=== PATIENT | male | born 1935 | race Caucasian/White ===

== ENCOUNTER 2017-10-26 05:07 | Day surgery (SDC) | payer MEDICARE, MEDICAID ==
[2017-10-25 10:35] VITALS: BP 142/67
[2017-10-25 11:39] LABS: EOSINOPHIL % 0.4 % (0.0-5.0); HEMOGLOBIN 13.1 g/dL (13.9-16.3); LYMPHOCYTES # 1.3 10^3/uL (1.0-4.8); LYMPHOCYTES % 23.3 % (24.0-44.0); MEAN CELL HGB CONCENTRATION 34.7 g/dL (33-37); MEAN CORP VOLUME 83.4 fL (78-100); MEAN PLATELET VOLUME 10.9 fL (7.8-11.0); MONOCYTES # 0.4 10^3/uL (0.3-0.8); NEUTROPHIL # 3.8 10^3/uL (1.8-7.7); NEUTROPHILS % 69.3 % (41.0-85.0); RED CELL DISTRIBUTION WIDTH 15.1 % (11.5-14.5); WHITE BLOOD CELL 5.5 10^3/uL (4.5-11.0)
--- NOTE | 2017-10-25 11:56 | PCM.EKG ---
[facility] Test Date: 2017-10-25 Test Time: 10:53:45 Pat Name: RHEA BAKER Department: Room: Gender: M Tool Designer: AWLVAntelmo : 1935 Requested By: RHEA GRIFFITH Order Number: [id number] Reading MD: Measurements Intervals [place] Rate: 51 P: 41 [place]: 214 QRS: -31 QRSD: 86 T: -23 QT: 486 QTc: 447 Interpretive Statements Sinus bradycardia with 1st degree AV block Left axis deviation T wave abnormality, consider anterolateral ischemia Abnormal ECG Compared to ECG 07/28/2017 02:50:33 Left-axis deviation now present T-wave abnormality now present Possible ischemia now present Sinus rhythm no longer present Please click the below link to view image of tracing.
[2017-10-25 12:13] LABS: CARBON DIOXIDE 23.7 mmol/L (20.0-32)
[~2017-10-26] VITALS: Ht 177.8 cm; Wt 101.3 kg
[~2017-10-26 05:07] MED LIST: ALBU8.5H7 IH; AMLO10TA2 PO; ASPI1CPM PO; ASPI325T14 PO; ASPI81TA52 PO; BIMA2.5D OP; CITA20TA5 PO; DIPH1TAB PO; DOCU-123 PO; FLUT10.6 IH; FURO40TA4 PO; GABA300C10 PO; HYDR-3101 PO; INSU100C5 SQ; INSU100I19 SQ; INSU100V13 SQ; IPRA4AER IH; LEVO25TA4 PO; LEVO50TA6 PO; LINA5TAB PO; LIRA0.6P2 SQ; LISI-414 PO; LISI10TA2 PO; MAGN296S9 PO; MAGN400O49 PO; MECL25TA3 PO; METF10002 PO; METF500T4 PO; METO25TA4 PO; METO50TA2 PO; MOVIPREP POWDER PACKET PO STA; OMEP40CA6 PO; OXYB5TAB7 PO; PANT40TA5 PO; PIOG30TA27 PO; PIOG30TA3 PO; PREG75CA PO; PROM25TA10 PO; RANI150C PO; RANO500T2 PO; TIOT18CA IH; TRAM50TA PO
[2017-10-26] MEDS ORDERED: NS 1000ML 1,000 ML ONE (05:20)
[2017-10-26] MEDS ORDERED: NS 1000ML 1,000 ML IV ONE (06:00)
[2017-10-26] MEDS ORDERED: SUBLIMAZE ONE (07:02)
[2017-10-26] MEDS ORDERED: LIDOCAINE 2% VIAL ONE (07:02)
[2017-10-26] MEDS ORDERED: VERSED ONE (07:02)
[2017-10-26] MEDS ORDERED: DIPRIVAN IV ONE (07:03)
[2017-10-26 08:11] VITALS: BP 153/74
[2017-10-26 11:35] VITALS: BP 166/83
[2017-10-26 11:50] VITALS: BP 172/73
[2017-10-26 12:05] VITALS: BP 164/80
--- NOTE | 2017-10-26 12:16 | OPH ---
DATE OF SURGERY: PREOPERATIVE DIAGNOSES: History of weight loss, dysphagia, unexplained vomiting and need for screening. POSTOPERATIVE DIAGNOSES: 1. Gastritis. 2. Check path on polyp. SURGEON: Chaparro Beard DO FINISHING TECHNICIAN: OR staff. ANESTHESIA: Total intravenous anesthesia by Ashely Wade CRNA PROCEDURES PERFORMED: 1. Esophagogastroduodenoscopy with biopsy. 2. Long flexible colonoscopy to cecum with cold forceps polypectomy x 2 in the ascending colon and x 1 in the transverse colon. SPECIMENS: 1. Gastric mucosa. 2. Ascending colon polyp. 3. Transverse colon polyp. All to path. ESTIMATED BLOOD LOSS: 7 mL. COUNTS: At the completion of the case, counts were correct per OR staff. DESCRIPTION OF PROCEDURE: The patient is an 82-year-old male, known from previous evaluation. Prior to procedure, informed consent was obtained. At the time of procedure, he was taken to the operative suite and placed in supine position. After time-out was completed, he was placed in left lateral recumbent position. After adequate sedation, esophagogastroduodenoscope was advanced transorally with pneumoinsufflation distally in second portion of duodenum. Once the duodenum was adequately visualized, camera was slowly withdrawn to facilitate visualization of the duodenal bulb and the pylorus. Pylorus showed minimal gastritis and biopsies were obtained. The retroflexed maneuver was performed. The cardia showed a small hiatal hernia. Fundus was grossly normal. Camera was reduced, stomach was decompressed. Scope was slowly withdrawn. Distal, mid and proximal esophagus were grossly normal. Vocal cords were visualized. Camera was removed. Procedure was discontinued The patient remained ER. Timeout was previously completed. After adequate sedation, rectal exam was performed. There were noted to be a very firm and enlarged prostate. There was no other mass aside from soft internal hemorrhoids. Camera was subsequently advanced transanally with pneumoinsufflation proximally to the level of the transverse colon where a small polyp was identified. It was removed with cold forceps. The camera was further advanced proximally to the level of the cecum. Once cecum was visualized, camera was slowly withdrawn to facilitate visualization of the ascending colon. In the distal ascending colon, 2 discrete small polyps were identified and removed and sent in the same container to pathology. Camera was further withdrawn to the remainder of the ascending colon, hepatic flexure and the transverse colon to the level of the previous polypectomy. There was noted to be good hemostasis. Camera was further withdrawn to the remainder of the distal transverse colon, splenic flexure, descending colon, sigmoid and rectum. There was no overt masses, polyps, or AVMs aside the once previously described. There was some occult diverticular disease noted. At the level of 5 cm, camera was retroflexed and reinserted. Anal verge was visualized within normal limits. Camera reduced. Colon decompressed, colonoscope was removed. The patient tolerated this procedure well. There were no acute complications noted. Chaparro Beard DO DR: Chan JOB# [id number] CC: Robert Arias NP
== END 2017-10-26 12:30 | DRG 395 ==
LOC: SDC 05:07
PROVIDERS: ATTEND Surgery
DX: D12.2 Benign neoplasm of ascending colon (principal); D12.3 Benign neoplasm of transverse colon; K29.30 Chronic superficial gastritis without bleeding; E11.42 Type 2 diabetes mellitus with diabetic polyneuropathy; I11.0 Hypertensive heart disease with heart failure; I50.9 Heart failure, unspecified; E03.9 Hypothyroidism, unspecified; Z98.890 Other specified postprocedural states; Z79.899 Other long term (current) drug therapy; F15.90 Other stimulant use, unspecified, uncomplicated; Z88.2 Allergy status to sulfonamides; Z79.84 Long term (current) use of oral hypoglycemic drugs
CPT/HCPCS: 36415; 43239; 45380; 80053; 82948 ×2; 85025; 85610; 85730; 88305; 93005; J2001; J2250; J3010; J3490; J7030; G0121

== ENCOUNTER 2018-05-14 07:40 | Emergency (ER) | payer MEDICARE, MEDICAID ==
[~2018-05-14] VITALS: Ht 182.9 cm; Wt 99.8 kg
[~2018-05-14 07:40] MED LIST changes: -AMLO10TA2 PO; +AMLO10TA6 PO; -CITA20TA5 PO; +CITA20TA6 PO; -METF10002 PO; +METF10007 PO; +METF500T17 PO; -METF500T4 PO; -METO50TA2 PO; +METO50TA6 PO; -MOVIPREP POWDER PACKET PO STA; -PIOG30TA3 PO; +PIOG30TA67 PO
--- NOTE | 2018-05-14 07:59 | ER.PDOC ---
General Chief Complaint: Requesting Medical Care Stated Complaint: CHEST PAIN Time seen by MD: 07:42 Source: patient, EMS Exam Limitations: clinical condition History of Present Illness Initial Comments Pt started having chest pain, at 6:45, radiating to back and neck. He received three nitros and 324 of aspirin and pain is now reduced to about 3/10. Mild shortness of breath Timing/Duration: 1 hour Severity/Quality: severe, pressure, sharp Radiation: neck, back Activities at Onset: none Prior CP/Workup: No Prior Chest Pain Nitro Today/Relief: 0.4 mg x 3, Provided By EMS Aspirin Today: 81 mg x 4, Provided By EMS Associated Symptoms: back pain, shortness of breath Allergies: Coded Allergies: Sulfa (Sulfonamide Antibiotics) (Verified Allergy, Severe, Swelling, ) "THE ROOF OF MY MOUTH SWELLS UP ON ME AND I CAN'T EVEN OPEN MY MOUTH TO TALK" Home Meds Reported Medications Insulin Detemir (LEVEMIR) 100 Unit/1 Ml Vial, 8 UNIT SQ HS, VIAL 10/25/17 Tiotropium [place] (SPIRIVA) 18 Mcg Cap.w.dev, 1 CAP IH BID, #30 CAP 3 Refills 10/25/17 Metformin Hcl (METFORMIN HCL) 1,000 Mg Tablet, 1 TAB PO BID, #60 TAB 5 Refills 10/25/17 Furosemide (FUROSEMIDE) 40 Mg Tablet, 1 TAB PO DAILY, #30 TAB 5 Refills 10/25/17 Aspirin (ASPIR-LOW) 81 Mg Tablet.dr, 1 TAB PO DAILY, #30 TAB 3 Refills 10/25/17 Lisinopril (LISINOPRIL) 5 Mg Tablet, 1 TAB PO DAILY, #30 TAB 5 Refills 10/25/17 Levothyroxine Sodium (LEVOTHYROXINE SODIUM) 50 Mcg Tablet, 50 MCG PO DAILY24, TABLET 07/28/17 Fluticasone Propionate (FLOVENT HFA) 10.6 Gm Aer.w.adap, 2 PUFF IH BID, #1 INHALER 2 Refills 12/09/15 Pregabalin (LYRICA) 75 Mg Capsule, 1 CAP PO BID, #60 CAP 1 Refill 12/09/15 Ranolazine (RANEXA) 500 Mg Tab.er.12h, 1 TAB PO BID, #60 TAB 3 Refills 12/09/15 Citalopram Hydrobromide (CITALOPRAM HBR) 20 Mg Tablet, 1 TAB PO DAILY, #30 TAB 5 Refills 12/09/15 Pioglitazone Hcl (ACTOS) 30 Mg Tablet, 1 TAB PO DAILY, #30 TAB 5 Refills 12/09/15 Oxybutynin Chloride (OXYBUTYNIN CHLORIDE) 5 Mg Tablet, 1 TAB PO DAILY, #60 TAB 11 Refills 12/09/15 Omeprazole (OMEPRAZOLE) 40 Mg Capsule.dr, 1 CAP PO DAILY PRN for INDIGESTION, # 30 CAP 3 Refills 12/09/15 Metoprolol Tartrate 50MG (LOPRESSER 50MG) 50 Mg Tablet, 1 TAB PO BID, #60 TAB 5 Refills 12/09/15 Bimatoprost (LUMIGAN) 2.5 Ml Drops, 1 DROP OP HS, #7.5 MILLILITER 3 Refills 12/09/15 Amlodipine Besylate (AMLODIPINE BESYLATE) 10 Mg Tablet, 5 MG PO DAILY, #30 TAB 5 Refills 03/24/14 Aspirin/Dipyridamole (AGGRENOX 25 MG-200 MG CAPSULE) 1 Each Cpmp.12hr, 1 CAP PO DAILY, #60 CAP 5 Refills 03/24/14 Insulin Detemir (LEVEMIR) 100 Unit/1 Ml Insuln.pen, 12 UNIT SQ ACB 03/24/14 Past Medical History Surgical History: cardiac cath, cholecystectomy, tonsillectomy Social History Drug Use: none Constitutional: no symptoms reported EENTM: no symptoms reported Respiratory: see HPI Cardiovascular: see HPI Gastrointestinal: no symptoms reported Genitourinary: no symptoms reported Musculoskeletal: no symptoms reported Skin: no symptoms reported Psychiatric/Neurological: no symptoms reported Endocrine: no symptoms reported Hematologic/Lymphatic: no symptoms reported Physical Exam General Appearance: No Apparent Distress, WD/WN HEENT: PERRL/EOMI, Normal ENT Inspection, TMs Normal, Pharynx Normal Neck: Non-Tender, Full Range of Motion, Supple, Normal Inspection Respiratory: lungs clear, normal breath sounds, no respiratory distress, other (tender anterior chest wall on palpation) Cardiovascular: Normal Peripheral Pulses, No Gallop, No JVD, Bradycardia Gastrointestinal: Normal Bowel Sounds, No Organomegaly, No Pulsatile Mass, Non Tender, Soft Extremities: Normal Inspection, Pedal Edema (3/6) Neurologic/Psychiatric: roll slicing machine tender II-XII NML as Tested, No Motor/Sensory Deficits, Alert, Normal Mood/Affect, Oriented x 3 Skin: Normal Color, Warm/Dry Lymphatic: No Adenopathy Progress Progress Pain free, needs to follow with Cardio Departure Time of Disposition: 09:05 Disposition: 01 HOME, SELF-CARE Impression: Primary Impression: Chest pain Additional Impression: Chest wall pain Condition: Stable Referrals: VINEET MACK [employer] (PCP) PRIMARY CARE PROVIDER Duration or Time Spent with Pa: 25 Problem Qualifiers CECI ROLON MD May 14, 2018 07:59
[2018-05-14 08:00] VITALS: BP 135/53
--- NOTE | 2018-05-14 08:02 | NUR ---
ARRIVAL PATIENT ARRIVED VIA AMBULANCE FROM [facility] RECEIVED REPORT FROM [facility] PERSONEL PT REPORTS CHEST PAIN THAT RADIATES TO BACK AND NECK AT "10" PATIENT RECEIVED SL NITRO X3, 324 ASA, 5MG MORPHINE AND 4MG ZOFRAN PRIOR TO ARRIVAL PT REPORTS PAIN AT "4" UPON ARRIVAL 20G IV TO LEFT AC INITIATED BY EMS DR ROLON IN ROOM UPON ARRIVAL
--- NOTE | 2018-05-14 08:19 | PCM.EKG ---
[facility] Test Date: 2018-05-14 Test Time: 08:23:14 Pat Name: RHEA BAKER Department: Room: Gender: M [employer]p [place]: KEIRY : 1935 Requested By: REAL PETERSON Order Number: [id number] Reading MD: Real Peterson Measurements Intervals [place] Rate: 44 P: 31 OR: 264 QRS: -21 QRSD: 94 T: -10 QT: 500 QTc: 427 Interpretive Statements Marked sinus bradycardia with 1st degree AV block Nonspecific T wave abnormality Abnormal ECG Compared to ECG 10/25/2017 10:53:45 Left-axis deviation no longer present Possible ischemia no longer present T-wave abnormality still present Electronically Signed On 05-15-2018 22:53:32 CDT by Real Peterson Please click the below link to view image of tracing.
[2018-05-14 08:25] LABS: BASOPHIL % 0.2 % (0.0-0.2); EOSINOPHIL % 0.4 % (0.0-5.0); HEMOGLOBIN 12.2 g/dL (13.9-16.3); LYMPHOCYTES # 1.4 10^3/uL (1.0-4.8); LYMPHOCYTES % 24.8 % (24.0-44.0); MEAN CELL HGB 28.5 pg (26-34); MEAN CELL HGB CONCENTRATION 33.9 g/dL (33-37); MEAN CORP VOLUME 84.1 fL (78-100); MEAN PLATELET VOLUME 10.6 fL (7.8-11.0); MONOCYTES # 0.5 10^3/uL (0.3-0.8); MONOCYTES % 9.3 % (5.0-12.0); NEUTROPHIL # 3.7 10^3/uL (1.8-7.7); NEUTROPHILS % 65.1 % (41.0-85.0); RED CELL DISTRIBUTION WIDTH 14.9 % (11.5-14.5); WHITE BLOOD CELL 5.6 10^3/uL (4.5-11.0)
--- NOTE | 2018-05-14 08:35 | DIREP ---
PROCEDURE:CHEST 1 VIEW COMPARISON:[facility], CR, XRAY CHEST SINGLE VW, 07/28/2017, 02:46 AM. INDICATIONS:CP FINDINGS: LUNGS/PLEURA:No significant pulmonary parenchymal abnormalities. No effusions. VASCULATURE:Normal. Unremarkable pulmonary vasculature. CARDIAC:Heart size cannot be evaluated due to AP technique. There are prominent epicardial fat pad. MEDIASTINUM:Normal. No visible mass or adenopathy. BONES:Normal. No fracture or visible bony lesion. OTHER:Negative. CONCLUSION:No acute cardiopulmonary abnormalities. No change from previous study. Dictated by: Zafar Condon M.D. on 05/14/2018 at 08:32 AM
[2018-05-14 08:48] LABS: ALANINE AMINOTRANSFERASE(ML) 19 U/L (12-78); ALKALINE PHOSPHATASE 126 U/L (50-136); ASPARTATE AMINO TRANSFERASE 23 U/L (0-35); CALCIUM 9.2 mg/dL (8.4-10.5); CARBON DIOXIDE 26.9 mmol/L (20.0-32); GLUCOSE 157 mg/dL (70-110)
[2018-05-14 09:00] VITALS: BP 146/54
[2018-05-14 09:25] VITALS: BP 144/53
--- NOTE | 2018-05-14 09:40 | NUR ---
IV THIS NURSE REMOVED PT IV THAT WAS PLACED BY EMS. CATHETER TIP IN TACT. WRAPPED IV WITH COTTON BALL AND COBAN. PT WAS INSTRUCTED TO LEAVE IN PLACE UNTIL RETURN TO [facility]. PT DEMONSTRATED UNDERSTANDING.
[2018-05-14 09:44] VITALS: BP 135/53
== END 2018-05-14 09:43 | disposition home or self-care (01) ==
LOC: EDBD 07:40 → EDUNIT# 07:40 → ER 07:40
DX: R07.89 Other chest pain (principal); R06.02 Shortness of breath; M54.9 Dorsalgia, unspecified; Z95.818 Presence of other cardiac implants and grafts; Z90.49 Acquired absence of other specified parts of digestive tract; Z90.89 Acquired absence of other organs; Z79.4 Long term (current) use of insulin; Z79.82 Long term (current) use of aspirin; Z79.899 Other long term (current) drug therapy; Z88.2 Allergy status to sulfonamides
CPT/HCPCS: 36415; 71045; 80053; 82550; 82553; 83880; 84484; 85025; 85379; 85610; 85730; 93005; 99285

== ENCOUNTER 2018-10-05 03:49 | Emergency (ER) | payer MEDICARE, MEDICAID ==
[~2018-10-05] VITALS: Ht 182.9 cm; Wt 99.8 kg
[~2018-10-05 03:49] MED LIST changes: -AMLO10TA6 PO; +AMLO10TA8 PO
--- NOTE | 2018-10-05 03:54 | ER.PDOC ---
General Chief Complaint: Requesting Medical Care Stated Complaint: FALL Time seen by MD: 03:45 Source: patient Exam Limitations: no limitations History of Present Illness Initial Comments Pt fell at [facility], injured right shoulder, head, pain also on left hip Occurred: just prior to arrival Where: [facility] Severity: moderate Injuries/Pain Location: head, upper extremity, lower extremity Context: Lost Balance Loss of Consciousness: No Loss of Consciousness Allergies: Coded Allergies: Sulfa (Sulfonamide Antibiotics) (Verified Allergy, Severe, Swelling, ) "THE ROOF OF MY MOUTH SWELLS UP ON ME AND I CAN'T EVEN OPEN MY MOUTH TO TALK" MEDS Reported Medications Insulin Detemir (LEVEMIR) 100 Unit/1 Ml Vial, 8 UNIT SQ HS, VIAL 10/25/17 Tiotropium [place] (SPIRIVA) 18 Mcg Cap.w.dev, 1 CAP IH BID, #30 CAP 3 Refills 10/25/17 Metformin Hcl (METFORMIN HCL) 1,000 Mg Tablet, 1 TAB PO BID, #60 TAB 5 Refills 10/25/17 Furosemide (FUROSEMIDE) 40 Mg Tablet, 1 TAB PO DAILY, #30 TAB 5 Refills 10/25/17 Aspirin (ASPIR-LOW) 81 Mg Tablet.dr, 1 TAB PO DAILY, #30 TAB 3 Refills 10/25/17 Lisinopril (LISINOPRIL) 5 Mg Tablet, 1 TAB PO DAILY, #30 TAB 5 Refills 10/25/17 Levothyroxine Sodium (LEVOTHYROXINE SODIUM) 50 Mcg Tablet, 50 MCG PO DAILY24, TABLET 07/28/17 Fluticasone Propionate (FLOVENT HFA) 10.6 Gm Aer.w.adap, 2 PUFF IH BID, #1 INHALER 2 Refills 12/09/15 Pregabalin (LYRICA) 75 Mg Capsule, 1 CAP PO BID, #60 CAP 1 Refill 12/09/15 Ranolazine (RANEXA) 500 Mg Tab.er.12h, 1 TAB PO BID, #60 TAB 3 Refills 12/09/15 Citalopram Hydrobromide (CITALOPRAM HBR) 20 Mg Tablet, 1 TAB PO DAILY, #30 TAB 5 Refills 12/09/15 Pioglitazone Hcl (ACTOS) 30 Mg Tablet, 1 TAB PO DAILY, #30 TAB 5 Refills 12/09/15 Oxybutynin Chloride (OXYBUTYNIN CHLORIDE) 5 Mg Tablet, 1 TAB PO DAILY, #60 TAB 11 Refills 12/09/15 Omeprazole (OMEPRAZOLE) 40 Mg Capsule.dr, 1 CAP PO DAILY PRN for INDIGESTION, # 30 CAP 3 Refills 12/09/15 Metoprolol Tartrate 50MG (LOPRESSER 50MG) 50 Mg Tablet, 1 TAB PO BID, #60 TAB 5 Refills 12/09/15 Bimatoprost (LUMIGAN) 2.5 Ml Drops, 1 DROP OP HS, #7.5 MILLILITER 3 Refills 12/09/15 Amlodipine Besylate (AMLODIPINE BESYLATE) 10 Mg Tablet, 5 MG PO DAILY, #30 TAB 5 Refills 03/24/14 Aspirin/Dipyridamole (AGGRENOX 25 MG-200 MG CAPSULE) 1 Each Cpmp.12hr, 1 CAP PO DAILY, #60 CAP 5 Refills 03/24/14 Insulin Detemir (LEVEMIR) 100 Unit/1 Ml Insuln.pen, 12 UNIT SQ ACB 03/24/14 Past Medical History Surgical History: cardiac cath, cholecystectomy, tonsillectomy Social History Drug Use: none Review of Systems Constitutional: see HPI Eyes: no symptoms reported Ears, Nose, Mouth, Throat: no symptoms reported Respiratory: no symptoms reported Cardiovascular: no symptoms reported Gastrointestinal: no symptoms reported Genitourinary: no symptoms reported Musculoskeletal: see HPI Skin: no symptoms reported Psychiatric/Neurological: no symptoms reported Physical Exam General Appearance: No Apparent Distress, WD/WN Head: No Evidence of Injury Eyes: bilateral eye normal inspection Ears, Nose, Mouth, Throat: Hearing Grossly Normal, No Evidence of ENT Injury, No Dental Injury Neck: Non-Tender, Normal Alignment, Nexus criteria neg, Normal Inspection Cardiovascular/Respiratory: Regular Rate, Rhythm, No M/R/G, Normal Peripheral Pulses, No JVD, Normal Breath Sounds, No Respiratory Distress Gastrointestinal: Normal Bowel Sounds, No Organomegaly, No Pulsatile Mass, Non Tender, Soft Extremities: No Evidence of Injury, Tenderness (right shoulder) Neurologic/Psychiatric: warp scouring vat tender II-XII NML as Tested, No Motor/Sensory Deficits, Alert, Normal Mood/Affect, Oriented x 3 Skin: Normal Color, Warm/Dry Alexa Coma Score Best Eye Response: (4) Open Spontaneously Best Verbal Response: (5) Oriented Best Motor Response: (6) Obeys Commands Departure Time of Disposition: 05:33 Disposition: 01 HOME, SELF-CARE Impression: Primary Impression: Shoulder contusion Additional Impression: Contusion, hip Condition: Stable Patient Instructions: Contusion Referrals: VINEET MACK [employer] (PCP) PRIMARY CARE PROVIDER Duration or Time Spent with Pa: 15 Problem Qualifiers CECI ROLON MD Oct 05, 2018 03:54
[2018-10-05 03:59] VITALS: BP 106/45
--- NOTE | 2018-10-05 05:09 | DIREP ---
PROCEDURE:CT HEAD WITHOUT CONTRAST TECHNIQUE:Axial cuts were obtained through the head, without intravenous contrast material. The images were viewed at brain and bone settings. COMPARISON:[facility], CT, CT HEAD BRAIN W/O CONTRAST, 07/28/2017, 02:39 AM. INDICATIONS:fall, head injury FINDINGS: VENTRICLES:There is moderate generalized prominence of the ventricles, sulci, and cisterns, within normal range for age. There is no hydrocephalus. CEREBRUM:There is mild patchy low density in the periventricular white matter of both cerebral hemispheres. There is no CT evidence of mass, hemorrhage, or acute infarct. CEREBELLUM:Mild volume loss. BRAINSTEM:Normal. SKULL:Normal. SINUSES:Normal. OTHER:Atherosclerotic calcifications of the carotid siphons are noted. CONCLUSION: 1. Mild chronic white matter ischemic change. 2. No acute abnormality is identified. 3. Cerebral atherosclerosis. Dictated by: Felix Faulkner MD on 10/05/2018 at 05:07 AM
--- NOTE | 2018-10-05 05:10 | DIREP ---
PROCEDURE:XRAY SHOULDER MIN 2 VWS-RT COMPARISON:None. INDICATIONS:fall, shoulder pain FINDINGS:Frontal internal and externally rotated views of the shoulder. BONES:Normal. JOINTS:No dislocation. Moderate degenerative changes of the glenohumeral joint. Small inferiorly directed osteophytes at the AC joint may contribute to impingement syndrome. SOFT TISSUES:Normal. OTHER:Normal. CONCLUSION:No fracture. No dislocation. Moderate shoulder osteoarthritis. Dictated by: Felix Faulkner MD on 10/05/2018 at 05:09 AM
--- NOTE | 2018-10-05 05:13 | DIREP ---
PROCEDURE:XRAY HIP MIN 2VW-BILAT COMPARISON:[facility], , XRAY PELVIS 1-2 VWS, 12/18/2015, 03:26 PM. INDICATIONS:fall left hip pain FINDINGS:AP and frog-leg view of the right and left hip BONES:No evidence of acute fracture. Benign enchondroma seen involving the metaphysis of the right femur. She irregularity of the right superior pubic ramus likely from prior injury. JOINTS:Moderate joint space loss with osteophyte formation involving bilateral hips. Mild degenerative changes of the pubic symphysis. Moderate degenerative change of the lumbar spine.. SOFT TISSUES:Normal. OTHER:No additional findings. CONCLUSION:Moderate osteoarthritis of the hips. No acute fracture. No dislocation. Dictated by: Felix Faulkner MD on 10/05/2018 at 05:10 AM
--- NOTE | 2018-10-05 05:33 | NUR ---
[facility] Notified Logan at [facility] that patient is ready to be picked up. Logan states that he will get transportation arranged for pick up operator
[2018-10-05 05:45] VITALS: BP 118/52
[2018-10-05 06:11] VITALS: BP 118/52
== END 2018-10-05 05:46 | disposition home or self-care (01) ==
LOC: EDUNIT# 03:49 → EDBD 03:49 → ER 03:49
DX: S40.011A Contusion of right shoulder, initial encounter (principal); S70.02XA Contusion of left hip, initial encounter; R51 Headache; Z90.49 Acquired absence of other specified parts of digestive tract; Z79.4 Long term (current) use of insulin; Z79.82 Long term (current) use of aspirin; Z79.899 Other long term (current) drug therapy; Z88.2 Allergy status to sulfonamides; W19.XXXA Unspecified fall, initial encounter; Y93.89 Activity, other specified; Y92.128 Other place in nursing home as the place of occurrence of the external cause; Y99.8 Other external cause status
CPT/HCPCS: 70450; 73521; 99285; 73030-RT

== ENCOUNTER 2019-01-18 19:30 | Inpatient (IN) | payer MEDICARE, MEDICAID ==
[~2019-01-18] VITALS: Ht 182.9 cm; Wt 105.2 kg
--- NOTE | 2019-01-18 19:35 | NUR ---
Arrival: Pt wheeled to ED 1, via EMS. Pt TRISTAN*4, GCS 15, in no acute distress. Assessment as charted and placed on monitor. EDP notified of pt.
[2019-01-18 19:41] VITALS: BP 124/55
[2019-01-18] MEDS ORDERED: NS 1000ML 1,000 ML IV STA ×3 (20:24→23:43)
--- NOTE | 2019-01-18 20:24 | ER.PDOC ---
General Chief Complaint: Trunk Pain/Injury Stated Complaint: Rib pain Time seen by MD: 20:12 Source: patient Exam Limitations: no limitations History of Present Illness Initial Comments 83 Y/O MALE WITH HX FELL AT CUSTODIAL AT 0530, WITH LEFT CHEST WALL PAIN, PATIENT STATES SAYS HE WAS ACTING DIFFERENT AND WANTED PATIENT BROUGHT TO THE ED. PATIENT COMPLAINS OF LEFT CHEST PAIN AND LEFT KNEE PAIN. UNKNOWN TO PATIENT THAT HE HAD A FEVER. PATIENT STATES HE TRIPPED WITH WALKER, DENIES SYNCOPAL EPISODE OR CHEST PAIN, ON GROUND LESS THEN 5 MIN. Occurred: this morning Where: custodial Severity: mild Injuries/Pain Location: chest, lower extremity Context: Unknown Loss of Consciousness: No Loss of Consciousness Allergies: Coded Allergies: Sulfa (Sulfonamide Antibiotics) (Verified Allergy, Severe, Swelling, 12/09/15) "THE ROOF OF MY MOUTH SWELLS UP ON ME AND I CAN'T EVEN OPEN MY MOUTH TO TALK" MEDS Reported Medications Insulin Detemir (LEVEMIR) 100 Unit/1 Ml Vial, 8 UNIT SQ HS, VIAL 10/25/17 Tiotropium [place] (SPIRIVA) 18 Mcg Cap.w.dev, 1 CAP IH BID, #30 CAP 3 Refills 10/25/17 Metformin Hcl (METFORMIN HCL) 1,000 Mg Tablet, 1 TAB PO BID, #60 TAB 5 Refills 10/25/17 Furosemide (FUROSEMIDE) 40 Mg Tablet, 1 TAB PO DAILY, #30 TAB 5 Refills 10/25/17 Aspirin (ASPIR-LOW) 81 Mg Tablet.dr, 1 TAB PO DAILY, #30 TAB 3 Refills 10/25/17 Lisinopril (LISINOPRIL) 5 Mg Tablet, 1 TAB PO DAILY, #30 TAB 5 Refills 10/25/17 Levothyroxine Sodium (LEVOTHYROXINE SODIUM) 50 Mcg Tablet, 50 MCG PO DAILY24, TABLET 07/28/17 Fluticasone Propionate (FLOVENT HFA) 10.6 Gm Aer.w.adap, 2 PUFF IH BID, #1 INHALER 2 Refills 12/09/15 Pregabalin (LYRICA) 75 Mg Capsule, 1 CAP PO BID, #60 CAP 1 Refill 12/09/15 Ranolazine (RANEXA) 500 Mg Tab.er.12h, 1 TAB PO BID, #60 TAB 3 Refills 12/09/15 Citalopram Hydrobromide (CITALOPRAM HBR) 20 Mg Tablet, 1 TAB PO DAILY, #30 TAB 5 Refills 12/09/15 Pioglitazone Hcl (ACTOS) 30 Mg Tablet, 1 TAB PO DAILY, #30 TAB 5 Refills 12/09/15 Oxybutynin Chloride (OXYBUTYNIN CHLORIDE) 5 Mg Tablet, 1 TAB PO DAILY, #60 TAB 11 Refills 12/09/15 Omeprazole (OMEPRAZOLE) 40 Mg Capsule.dr, 1 CAP PO DAILY PRN for INDIGESTION, #30 CAP 3 Refills 12/09/15 Metoprolol Tartrate 50MG (LOPRESSER 50MG) 50 Mg Tablet, 1 TAB PO BID, #60 TAB 5 Refills 12/09/15 Bimatoprost (LUMIGAN) 2.5 Ml Drops, 1 DROP OP HS, #7.5 MILLILITER 3 Refills 12/09/15 Amlodipine Besylate (AMLODIPINE BESYLATE) 10 Mg Tablet, 5 MG PO DAILY, #30 TAB 5 Refills 03/24/14 Aspirin/Dipyridamole (AGGRENOX 25 MG-200 MG CAPSULE) 1 Each Cpmp.12hr, 1 CAP PO DAILY, #60 CAP 5 Refills 03/24/14 Insulin Detemir (LEVEMIR) 100 Unit/1 Ml Insuln.pen, 12 UNIT SQ ACB 03/24/14 Past Medical History Medical History: CVA/TIA/stroke, COPD, diabetes, hypertension Surgical History: cardiac cath, cholecystectomy, tonsillectomy Social History Smoking: non-smoker Alcohol Use: none Drug Use: none Reviewed Nursing Reviewed: Vital Signs, Abn. Noted, Nursing Assessment Review of Systems Constitutional: no symptoms reported, weakness Eyes: no symptoms reported Ears, Nose, Mouth, Throat: no symptoms reported Respiratory: other Cardiovascular: no symptoms reported, chest pain, other Gastrointestinal: no symptoms reported Genitourinary: no symptoms reported Musculoskeletal: joint pain, other Skin: no symptoms reported Psychiatric/Neurological: no symptoms reported Physical Exam General Appearance: WD/WN, Mild Distress, Obese Head: No Evidence of Injury Eyes: bilateral eye normal inspection, bilateral eye PERRL, bilateral eye EOMI Ears, Nose, Mouth, Throat: Hearing Grossly Normal, No Evidence of ENT Injury, No Dental Injury Neck: Normal Alignment, Nexus criteria neg, Normal Inspection, Paraspinous Muscle Tender Cardiovascular/Respiratory: Regular Rate, Rhythm, No M/R/G, Normal Peripheral Pulses, No JVD, Normal Breath Sounds, No Respiratory Distress, Rib Tenderness Gastrointestinal: Normal Bowel Sounds, No Organomegaly, No Pulsatile Mass, Soft, Tenderness Back: Normal Inspection, No CVA Tenderness, No Vertebral Tenderness Extremities: Normal Range of Motion, Tenderness, Other Neurologic/Psychiatric: counter supervisor II-XII NML as Tested, No Motor/Sensory Deficits, Alert, Normal Mood/Affect, Oriented x 3 Skin: Normal Color, Warm/Dry Comments CHEST- BRUISING TO LEFT CHEST , NO SUB-Q EMPHYSEMA, EQUAL BBS, MILD PAIN TO LEFT UPPER ABD, L LEG ABRASION TO LEFT ANT KNEE WITH MIN PAIN. Alexa Coma Score Best Eye Response: (4) Open Spontaneously Best Verbal Response: (5) Oriented Best Motor Response: (6) Obeys Commands Alexa Total: 15 Results/Orders Results/Orders Orders - TOMÁS VALENCIA DO Cbc With Auto Diff (01/18/19 20:24) Comprehensive Metabolic Panel (01/18/19 20:24) Blood Culture (01/18/19 20:24) Urinalysis (01/18/19 20:24) Troponin I (01/18/19 20:24) Creatine Kinase (01/18/19 20:24) Creatine Kinase Mb (01/18/19 20:24) PT (01/18/19 20:24) Partial Thromboplastin Time. (01/18/19 20:24) Lactic Acid(Rt) (01/18/19 20:24) 0.9 % Sodium Chloride (Ns 1000ml) (01/18/19 20:24) Ct Head Wo Contrast (01/18/19 20:24) Ct Cervical Spine (01/18/19 20:24) 0.9 % Sodium Chloride (Ns 1000ml) (01/18/19 20:46) Ct Chest Wo Iv Contrast (01/18/19 20:24) Ct Abd/Pelvis Wo Iv Contrast (01/18/19 20:24) Ekg-Routine (01/18/19 22:21) 0.9 % Sodium Chloride (Ns 1000ml) (01/18/19 22:21) Urine Culture (01/18/19 22:41) Piperacillin Sodium/Tazobactam (Zosyn 4. (01/18/19 23:30) 0.9 % Sodium Chloride (Ns 100ml) (01/18/19 23:20) 0.9 % Sodium Chloride (Ns 1000ml) (01/18/19 23:20) Piperacillin Sodium/Tazobactam (Zosyn 4. (01/18/19 23:20) Xr Knee Lt 3v (01/18/19 23:30) Vital Signs Date Time Temp Pulse Resp B/P (MAP) Pulse Ox O2 Delivery O2 Flow Rate FiO2 01/18/19 23:32 71 16 125/46 (72) Nasal Canula 2.00 01/18/19 22:00 60 16 125/52 (76) Nasal Canula 2.00 01/18/19 20:53 73 16 135/49 (77) Room Air 01/18/19 19:41 102.5 79 20 124/55 (78) 98 Room Air 102.5 01/18/19 19:35 102.5 79 20 102.5 01/18/19 19:35 102.5 80 20 98 Room Air 102.5 Administered Medications Medications (Trade) Dose Ordered Sig/Missy Route PRN Reason Start Time Stop Time Status Last Admin Dose Admin Piperacillin Sod/ Tazobactam Sod 4.5 gm/Sodium Chloride 100 ml @ 100 mls/hr Q6H IV 01/18/19 23:30 02/17/19 23:29 01/18/19 23:30 100 MLS/HR Sodium Chloride 1,000 ml @ 0 mls/hr Q0M STAT IV 01/18/19 20:24 01/18/19 20:34 DC 01/18/19 20:52 1,000 MLS/HR Sodium Chloride 1,000 ml @ 0 mls/hr Q0M STAT IV 01/18/19 22:21 01/18/19 22:23 DC 01/18/19 23:30 100 MLS/HR Laboratory Tests Test 01/18/19 20:45 01/18/19 20:58 01/18/19 22:41 White Blood Count 4.8 10^3/uL (4.5-11.0) Red Blood Count 3.38 10^6/uL (4.50-5.90) L Hemoglobin 10.4 g/dL (13.9-16.3) L Hematocrit 30.4 % (37.0-53.0) L Mean Corpuscular Volume 89.9 fL (78-100) Mean Corpuscular Hemoglobin 30.8 pg (26-34) Mean Corpuscular Hemoglobin Concent 34.2 g/dL (33-37) Red Cell Distribution Width 14.2 % (11.5-14.5) Platelet Count 173 10^3/uL (150-400) Mean Platelet Volume 9.5 fL (7.8-11.0) Neutrophils (%) (Auto) 86.0 % (41.0-85.0) H Lymphocytes (%) (Auto) 9.6 % (24.0-44.0) L Monocytes (%) (Auto) 4.0 % (5.0-12.0) L Neutrophils # (Auto) 4.1 10^3/uL (1.8-7.7) Lymphocytes # (Auto) 0.5 10^3/uL (1.0-4.8) L Monocytes # (Auto) 0.2 10^3/uL (0.3-0.8) L Absolute Immature Granulocyte (auto 0.02 10^3 u/L (0-2) Immature Granulocytes % 0.40 % (0.00-0.50) Eosinophils % 0.0 % (0.0-5.0) Basophils % 0.0 % (0.0-0.2) Basophils # 0.0 10^3/uL (0.0-0.1) Eosinophil Count 0.0 10^3/uL (0.0-0.2) Prothrombin Time 10.6 SEC (9.8-11.9) Prothrombin Time INR (Non-Therap) 1.1 PTT 24.3 SEC (24.67-30.72) Sodium Level 140 mmol/L (132-145) Potassium Level 3.9 mmol/L (3.6-5.2) Chloride Level 104.0 mmol/L (96-109) Carbon Dioxide Level 28.3 mmol/L (20.0-32) Anion Gap 11.6 Blood Urea Nitrogen 26 mg/dL (7-18) H Creatinine 1.87 mg/dL (0.59-1.40) H Estimated GFR () 41.8 (>/=60) BUN/Creatinine Ratio 13.0 Glucose Level 197 mg/dL (70-110) H Calcium Level 9.3 mg/dL (8.4-10.5) Total Bilirubin 0.4 mg/dL (0.2-1.0) Aspartate Amino Transferase (AST) 37 U/L (0-35) H Alanine Aminotransferase (ALT) 33 U/L (12-78) Alkaline Phosphatase 109 U/L (50-136) Total Creatine Kinase 84 U/L (39-308) Creatine Kinase MB < 0.5 ng/mL (0.5-3.6) L Troponin I < 0.02 ng/mL (0.00-0.05) Total Protein 6.8 g/dL (6.4-8.2) Albumin 3.0 g/dL (3.4-5.0) L Globulin 3.8 Blood Gas Sample Site VBG Ramses Test N/A Lactic Acid (Blood Gas) 1.7 mmol/1 (0.50-2.0) Urine Collection Type VOID Urine Color YELLOW (YELLOW) Urine Appearance CLOUDY (CLEAR) H Urine Bilirubin NEGATIVE MG/DL (NEGATIVE) Urine Ketones NEGATIVE (NEGATIVE) Urine Specific [place] 1.015 (1.005-1.035) Urine pH 5 (5.0-6.0) Urine Protein 30 mg/dL (NEGATIVE) H Urine Urobilinogen NORMAL (NEGATIVE) Urine Nitrate NEGATIVE (NEGATAIVE) Urine Leukocyte Esterase 500/uL 2+ (NEGATIVE) Urine Blood 25 1+ (NEGATIVE) H Urine RBC 0-2 RBC/HPF (NONE SEEN) Urine WBC TNTC WBC/HPF (0-2) H Urine Squamous Epithelial Cells NONE SEEN #/HPF (FEW) Urine Amorphous Sediment SMALL (NONE SEEN) Urine Bacteria FEW (NONE SEEN) H Urine Glucose NORMAL (NEGATIVE) Progress Progress AT 2330 PATIENT FEELS MUCH BETTER, DIFF DX IN DETAIL WITH PATIENT , HE REFUSES A LEWIS. NO OTHER PAIN. EKG/XRAY/CT/US EKG: NSR EKG Comments: EKG- RATE 65, NO ACUTE CHANGES. Consult/PCP Time Consult/PCP Called: 23:40 Consult/PCP: DR MARC, ADMIT TELE BED. Departure Time of Disposition: 23:39 Disposition: 09 ADMITTED INPATIENT Impression: Primary Impression: UTI (urinary tract infection) Additional Impressions: Chest wall hematoma Fall Abrasion, left knee, initial encounter Condition: Stable Referrals: VINEET MACK PACU NURSE (PCP) PRIMARY CARE PROVIDER Duration or Time Spent with Pa: 45 MIN Problem Qualifiers TOMÁS VALENCIA DO Jan 18, 2019 20:24
[2019-01-18] MEDS ORDERED: NS 1000ML 1,000 ML ONE ×2 (20:46→23:20)
[2019-01-18 20:53] VITALS: BP 135/49
[2019-01-18 21:00] LABS: HEMOGLOBIN 10.4 g/dL (13.9-16.3); LYMPHOCYTES # 0.5 10^3/uL (1.0-4.8); LYMPHOCYTES % 9.6 % (24.0-44.0); MEAN CELL HGB 30.8 pg (26-34); MEAN CELL HGB CONCENTRATION 34.2 g/dL (33-37); MEAN CORP VOLUME 89.9 fL (78-100); MEAN PLATELET VOLUME 9.5 fL (7.8-11.0); MONOCYTES # 0.2 10^3/uL (0.3-0.8); NEUTROPHIL # 4.1 10^3/uL (1.8-7.7); RED CELL DISTRIBUTION WIDTH 14.2 % (11.5-14.5); WHITE BLOOD CELL 4.8 10^3/uL (4.5-11.0)
[2019-01-18 21:24] LABS: ALANINE AMINOTRANSFERASE(ML) 33 U/L (12-78); ALKALINE PHOSPHATASE 109 U/L (50-136); ASPARTATE AMINO TRANSFERASE 37 U/L (0-35); CALCIUM 9.3 mg/dL (8.4-10.5); CARBON DIOXIDE 28.3 mmol/L (20.0-32); GLUCOSE 197 mg/dL (70-110)
--- NOTE | 2019-01-18 21:28 | NUR ---
CT: Pt to CT via stretcher
[2019-01-18 22:00] VITALS: BP 125/52
--- NOTE | 2019-01-18 22:20 | DIREP ---
PROCEDURE: CT SPINE CERVICAL W/O COMPARISON:[facility], CT, CT HEAD BRAIN W/O CONTRAST, 01/18/2019, 09:43 PM. INDICATIONS:PAIN FINDINGS: ALIGNMENT:Exaggeration of the cervical curvature VERTEBRAE:Normal. PARASPINAL AREA:Normal. OTHER:No additional findings. CERVICAL DISC LEVELS C2-C3:Normal. C3-C4:Posterior disc osteophyte complex and facet hypertrophy with severe right and moderate left neural foraminal narrowing. Moderate spinal canal narrowing. C4-C5:Disc osteophyte complex and facet hypertrophy with severe neural foraminal narrowing and moderate spinal canal narrowing.. C5-C6:Disc osteophyte complex and facet hypertrophy causes severe neural foraminal narrowing and mild spinal canal narrowing. C6-C7:Disc osteophyte complex with facet hypertrophy causes severe right moderate to severe left neural foraminal narrowing and moderate spinal canal narrowing. C7-T1:Normal. CONCLUSION: No fracture or listhesis. Exaggerated cervical curvature and multilevel degenerative changes as above. Dictated by: Hao Joyce MD on 01/18/2019 at 10:09 PM
--- NOTE | 2019-01-18 22:28 | DIREP ---
PROCEDURE:CT HEAD WITHOUT CONTRAST TECHNIQUE:Axial cuts were obtained through the head, without intravenous contrast material. The images were viewed at brain and bone settings. COMPARISON:[facility], CT, CT HEAD BRAIN W/O CONTRAST, 10/05/2018, 04:53 AM. INDICATIONS:FALL FINDINGS: VENTRICLES:The ventricles and sulci are prominent consistent with age related atrophy. CEREBRUM:There is periventricular and deep white matter hypoattenuation most likely related to chronic small vessel ischemic changes. No hemorrhage is seen. There is no mass effect. If signs and symptoms continue follow up MRI may be beneficial as CT is not sensitive for acute/subacute stroke. CEREBELLUM:Negative. BRAINSTEM:Negative. BASAL CISTERNS:Negative. SKULL:Normal. SINUSES:Normal. OTHER:None CONCLUSION: Age-related atrophy and chronic small vessel ischemic changes . No hemorrhage or mass effect. Dictated by: Hao Joyce MD on 01/18/2019 at 10:20 PM
--- NOTE | 2019-01-18 22:32 | DIREP ---
PROCEDURE:CT ABDOMEN/PELVIS W/O CONTRAST COMPARISON:[facility], CT, CT ABD/PELVIS W/ CONTRAST, 07/04/2015, 07:17 PM. INDICATIONS:FALL LEFT SIDED CHEST/ABD PAIN TECHNIQUE:Axial images were created through the abdomen and pelvis without intravenous contrast material. No oral contrast was administered. The lack of oral contrast limits assessment of the bowel Sagittal and coronal reconstructions were performed from source images. FINDINGS: LUNG BASES:Normal. No visible pulmonary or pleural disease. LIVER:Normal. No significant liver lesions are identified. BILIARY:The gallbladder is surgically absent. PANCREAS:There is fatty atrophy of the pancreas. SPLEEN:Normal. No enlargement or focal lesion. ADRENALS:Normal. No mass or enlargement. URINARY TRACT:Moderate left hydronephrosis and hydroureter without visualized obstructing stone.. Mild right renal atrophy. AORTA/VASCULAR:Normal. No aneurysm. RETROPERITONEUM:Normal. No mass or adenopathy. BOWEL/MESENTERY:Normal. There is no intestinal obstruction, free fluid, free air or mesenteric inflammatory changes. ABDOMINAL WALL:Small left fat containing inguinal hernia. No mass or ventral wall hernia. PELVIC ORGANS:Central calcifications within an enlarged prostate. Recommend correlation with PSA values and/or digital rectal exam. BONES:Multilevel bridging osteophytes suggestive of diffuse idiopathic skeletal hyperostosis versus ankylosing spondylitis. Multilevel degenerative changes otherwise noted. No acute fracture. OTHER:Negative. CONCLUSION: 1. Moderate left hydronephrosis and hydroureter without visualized obstructing stone. 2. Fatty atrophy of the pancreas. 3. Multilevel degenerative changes with findings compatible with diffuse idiopathic skeletal hyperostosis versus ankylosing spondylitis. Dictated by: Juan Mccoy DO on 01/18/2019 at 10:24 PM
--- NOTE | 2019-01-18 22:36 | DIREP ---
PROCEDURE:CT CHEST W/O COMPARISON:None. INDICATIONS:FALL CHEST PAIN TECHNIQUE:Helical sections through the chest were performed from the lung apices through the diaphragms without IV contrast. Sagittal and coronal reconstructions are obtained from source images. FINDINGS: LUNGS:Normal. No visible pulmonary disease. PLEURA:Normal. No mass or effusion. CARDIAC:Normal. No enlargement, pericardial thickening, or significant calcification. MEDIASTINUM:Normal. No mass or adenopathy. DESI:Normal. No mass or adenopathy. AORTA:Normal. No aneurysm. CHEST WALL:Normal. No mass or axillary adenopathy. LIMITED ABDOMEN:Normal. Limited images of the upper abdomen are unremarkable. BONES:Multilevel syndesmotic fights suggestive ankylosing spondylitis. Advanced osteopenia. No visualized acute fracture. OTHER:Negative. CONCLUSION:Osteopenia and evidence of ankylosing spondylitis without acute visualized fracture. Dictated by: Juan Mccoy DO on 01/18/2019 at 10:31 PM
[2019-01-18 22:51] LABS: BILIRUBIN,URINE NEGATIVE (NEGATIVE); UROBILINOGEN,URINE NORMAL (NEGATIVE)
[2019-01-18 22:59] LABS: APPEARANCE,URINE CLOUDY (CLEAR); UA COLOR YELLOW (YELLOW)
[2019-01-18] MEDS ORDERED: NS 100ML 100 ML IV ONE (23:20)
[2019-01-18] MEDS ORDERED: ZOSYN 4.5 GM IV ONE (23:20)
[2019-01-18] MEDS: ZOSYN 4.5 GRAM VIAL 4.5 GM in NS 100ML 100 ML IV SCH (23:30)
[2019-01-18 23:32] VITALS: BP 125/46
--- NOTE | 2019-01-18 23:32 | NUR ---
Aida Pearce on phone with Dr. Parra
--- NOTE | 2019-01-18 23:32 | NUR ---
Jimmy skelton in [facility] - 01/18/19 at 2354 by RADHA Kelly Pearce on phone with Dr. Mendoza
[2019-01-19] VITALS (29 sets, daily range): BP systolic 104–162; BP diastolic 38–81
--- NOTE | 2019-01-19 00:37 | NUR ---
Patient arrived to unit via stretcher, accompanied by Isael. RN. Patient is alert to verbal stimuli. No s/s of distress noted. will continue to monitor.
--- NOTE | 2019-01-19 00:52 | DIREP ---
PROCEDURE:XRAY KNEE 3 VIEWS-LT COMPARISON:None. INDICATIONS:KNEE PAIN FINDINGS: BONES:Normal. JOINTS:Joint space narrowing and osteophytes. SOFT TISSUES:Mild soft tissue swelling. OTHER:No additional findings. CONCLUSION:No acute findings. Degenerative changes. Dictated by: Hao Joyce MD on 01/19/2019 at 00:51 AM
--- NOTE | 2019-01-19 04:31 | PCM.EKG ---
[facility] Test Date: 2019-01-18 Test Time: 22:55:46 Pat Name: RHEA BAKER Department: Room: 312 Gender: M General Repair Mechanic: PRISCILLA : [id number] Requested By: RANJAN PEARCE Order Number: [id number] Reading MD: Ranjan Pearce Measurements Intervals [place] Rate: 65 P: 33 IA: 254 QRS: -18 QRSD: 86 T: 36 QT: 386 QTc: 401 Interpretive Statements Sinus rhythm with 1st degree AV block with occasional premature ventricular complexes Nonspecific T wave abnormality Abnormal ECG Compared to ECG 05/14/2018 08:23:14 Ventricular premature complex(es) now present Sinus bradycardia no longer present T-wave abnormality still present Electronically Signed On 01-21-2019 3:36:30 CDT by Ranjan Pearce Please click the below link to view image of tracing.
[2019-01-19] MEDS ORDERED: NS 100ML 100 ML IV ONE (04:52)
[2019-01-19] MEDS ORDERED: ZOSYN 4.5 GM IV ONE (04:52)
[2019-01-19] MEDS: ZOSYN 4.5 GRAM VIAL 4.5 GM in NS 100ML 100 ML IV SCH (04:57)
[2019-01-19] MEDS ORDERED: ZOFRAN IV PRN (06:00)
[2019-01-19] MEDS ORDERED: DEXTROSE 50%-WATER SYRINGE IV PRN (06:00)
[2019-01-19] MEDS ORDERED: DUONEB 0.5 MG-3 MG/3 ML SOLN IH PRN (06:00)
[2019-01-19] MEDS: SYNTHROID PO SCH (06:00)
--- NOTE | 2019-01-19 06:05 | PCM.HP ---
History of Present Illness Reason for Visit: Mechanical fall History of Present Illness Patient is an 83 M PMH of COPD, CKD, CAD, HTN, CVA, Hypothyroidism, DM, heart failure, TBI, and OA who presents s/p mechanical fall today @ SNF. On arrival in ER, patient had multiple imaging modalities performed which were all negative for acute fx or any acute pathology. CT of abdomen shows left Hydronephrosis and Hydroureter but no obstructing stone. Patient refused ackerman. Patient did have fever and UTI. No meningeal signs so LP not performed in ER (ER physician did not recommend). No headache or any other concerning Neuro findings. Patient was moderately confused in ER. Patient still having mild confusion during my evaluation but is answering questions appropriately. He only complains of left sided abdominal pain. Patient does have bruising to left extremities and left chest wall. Patient denies any other complaints. He does have SAROJ on labs. Neuro exam wnl. Past Medical History Cardiac: CAD, CHF, HTN Pulmonary: COPD DUPLEX TRIMMER: CVA, Other (TBI reported on history) Heme/Onc: Anemia NOS Musculoskeletal: Osteoarthritis Renal/: Chronic Renal Insuff Endocrine: Diabetes, Hypothyroidism Past Surgical History: Other (Shoulder, LHC) Past Social History Smoke: Quit Alcohol: none Drugs: None Lives: Residential Travel Hx EBOLA RISK:Travel to/contact w: No Is pt experiencing any Ebola s: No Review of Systems Constitutional: Fever; No: Chills Eyes: No: Conjunctivae inflammation, Eyelid inflammation ENT: No: Nose discharge, Nose congestion Respiratory: No: Cough, Shortness of breath, SOB with excertion, Wheezing Cardiovascular: No: Chest Pain, Palpitations, Edema Gastrointestinal: Abdominal Pain; No: Nausea, Vomiting Genitourinary: Dysuria, Hematuria; No Retention Musculoskeletal: No: neck pain, back pain Skin: Bruising; No: Rash, Lesions, Jaundice Neurological: Weakness, Confusion; No: Numbness, Incoordination, Change in speech, Seizures Allergies: Coded Allergies: Sulfa (Sulfonamide Antibiotics) (Verified Allergy, Severe, Swelling, 12/09/15) "THE ROOF OF MY MOUTH SWELLS UP ON ME AND I CAN'T EVEN OPEN MY MOUTH TO TALK" Scheduled Amlodipine Besylate (Amlodipine Besylate), 5 MG PO DAILY, (Reported) Aspirin (Aspir-Low), 1 TAB PO DAILY, (Reported) Aspirin/Dipyridamole (Aggrenox 25 Mg-200 Mg Capsule), 1 CAP PO DAILY, (Reported) Bimatoprost (Lumigan), 1 DROP OP HS, (Reported) Citalopram Hydrobromide (Citalopram Hbr), 1 TAB PO DAILY, (Reported) Fluticasone Propionate (Flovent Hfa), 2 PUFF IH BID, (Reported) Furosemide (Furosemide), 1 TAB PO DAILY, (Reported) Insulin Detemir (Levemir), 12 UNIT SQ ACB, (Reported) Insulin Detemir (Levemir), 8 UNIT SQ HS, (Reported) Levothyroxine Sodium (Levothyroxine Sodium), 50 MCG PO DAILY24, (Reported) Lisinopril (Lisinopril), 1 TAB PO DAILY, (Reported) Metformin Hcl (Metformin Hcl), 1 TAB PO BID, (Reported) Metoprolol Tartrate 50MG (Lopresser 50MG), 1 TAB PO BID, (Reported) Oxybutynin Chloride (Oxybutynin Chloride), 1 TAB PO DAILY, (Reported) Pioglitazone Hcl (Actos), 1 TAB PO DAILY, (Reported) Pregabalin (Lyrica), 1 CAP PO BID, (Reported) Ranolazine (Ranexa), 1 TAB PO BID, (Reported) Tiotropium [place] (Spiriva), 1 CAP IH BID, (Reported) Scheduled PRN Omeprazole (Omeprazole), 1 CAP PO DAILY PRN for INDIGESTION, (Reported) VTE VTE Risk Total Score: 4 VTE Risk Score VTE Risk: Score 0-1 = Low Risk (Aggressive mobilization; early ambulation; no VTE prophylaxis required) Score 2: Moderate Risk (Intermittent/Pneumatic Compression Device OR Lovenox/Heparin/Coumadin) Score 3-4: High Risk (Intermittent/Pneumatic Compression Device AND Lovenox/Heparin/Coumadin) Score > or =5: Highest Risk (Intermittent/Pneumatic Compression Device AND Lovenox/Heparin/Coumadin) VTE VTE Present on Admission: No Currently receiving anticoagul: No VTE Risk Total Score: 4 Exam Vital Signs Vital Signs Date Time Temp Pulse Resp B/P (MAP) Pulse Ox O2 Delivery O2 Flow Rate FiO2 01/19/19 04:45 97.9 56 18 120/40 (66) 95 Nasal Canula 2.00 97.9 General Appearance: Alert, Cooperative, No acute distress HEENT: PERRLA, EOMI, Mucous membr. moist/pink Respiratory: Clear to auscultation, Normal air movement Cardiovascular: Regular rate, Normal S1, Normal S2, No murmurs Abdominal: Normal bowel sounds, Soft, No tenderness Extremities: No edema, Normal pulses, No tenderness/swelling Skin: No rash, No breakdown, No lesions Neuro: Normal speech, Strength at 5/5 X4 ext, Normal tone, Sensation intact, Cranial nerves 3-12 NL Psych/Mental Status: Other (patient with mild confusion) Assessment/Plan Assessment/Plan Assessment/Plan Patient is an 83 M PMH of COPD, CKD, CAD, HTN, CVA, Hypothyroidism, DM, heart failure, TBI, and OA who presents s/p mechanical fall today @ SNF. Patient History: Asthma 32 MOTHER, , Age:73 Cerebrovascular disorder 33 FATHER, , Age:58 G8 SISTER, Age:85 Chronic obstructive pulmonary disease G8 SISTER, Age:85 Congestive heart failure G8 BROTHER, Diabetes mellitus G8 BROTHER, G8 SISTER, Age:85 G8 SISTER, 19 CHILD Hypertension 33 FATHER, , Age:58 G8 BROTHER, G8 BROTHER, G8 SISTER, 19 CHILD, , Age:42 No known health problems 19 CHILD No Family History of: Alzheimer's disease Diabetes insipidus Parkinson's disease Plan 1. Infectious Encephalopathy: 2/2 UTI. Patient likely with underlying Dementia. Cont IVF and IV abx. Blood/urine cx pending. 2. Fever: blood/urine cx pending. No sepsis. No meningeal signs. No indication for LP currently. Cont IV abx. 3. UTI: cont IVF, IV abx, urine cx pending. 4. Acute on chronic kidney disease: cont IVF, recheck metabolic panel in AM. Likely 2/2 ATN, dehydration 5. Mechanical fall: PT eval ordered, cont fall precautions. 6. Anemia of chronic disease: CBC daily 7. COPD: cont O2 support, nebs PRN 8. HTN: holding home meds currently 9. DM: cont basal insulin, SSI to cover. D/C Metformin. 10. Hypothyroidism: cont Synthroid 11. CAD: cont ASA, Ranexa 12. Heart Failure: will cont BB. Holding LULI 2/2 SAROJ 13. PPx: SCDs, PPI 14. Left sided abdominal/rib pain: will order dedicated rib series to rule out fx. CT shows Hydronephrosis/Hydroureter but no obstructing stone. Patient denies hx of Nephrolithiasis. GLENNY MARC MD Jan 19, 2019 06:05
[2019-01-19] MEDS ORDERED: MORPHINE SULFATE ONE (06:20)
[2019-01-19] MEDS ORDERED: MORPHINE SULFATE IV PRN (06:30)
[2019-01-19] MEDS: PROTONIX PO SCH (09:07)
[2019-01-19] MEDS: ASPIRIN EC PO SCH (09:07)
[2019-01-19] MEDS: CeleXA PO SCH (09:08)
[2019-01-19] MEDS: DITROPAN PO SCH (09:08)
[2019-01-19] MEDS: RANEXA PO SCH ×2 (09:08→21:02)
[2019-01-19] MEDS: LOPRESSOR PO SCH ×2 (09:08→21:02)
[2019-01-19] MEDS: LANTUS SQ SCH ×2 (09:12→21:01)
[2019-01-19] MEDS: HUMALOG SQ SCH ×4 (09:13→20:59)
[2019-01-19] MEDS: NS 1000ML/KCL 20MEQ 1,000 ML IV SCH ×2 (09:15→21:33)
--- NOTE | 2019-01-19 10:20 | NUR ---
DISCHARGE PLAN: CASE MANAGEMENT VISITED WITH PATIENT CONCERNING DISCHARGE PLAN AND NEEDS. 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 KANDACE AT [facility] STATED THAT THEIR PLAN WAS FOR PATIENT TO DISCHARGE BACK TO [facility]. DISCHARGE GOAL IS TO DISCHARGE TO [facility] WITH PICC LINE/MIDLINE AND CONTINUE IV ANTIBIOTICS. CM WILL CONTINUE TO FOLLOW FOR DISCHARGE NEEDS.
[2019-01-19] MEDS: ZOSYN 2.25GM 2.25 GM in NS 100ML 100 ML IV SCH ×3 (11:31→22:13)
[2019-01-19] MEDS: LUMIGAN OP SCH (21:00)
[2019-01-20 00:20] VITALS: BP 141/64
[2019-01-20 04:06] VITALS: BP 157/86
[2019-01-20 04:55] LABS: BASOPHIL % 0.3 % (0.0-0.2); EOSINOPHIL % 0.2 % (0.0-5.0); HEMOGLOBIN 10.1 g/dL (13.9-16.3); LYMPHOCYTES # 1.2 10^3/uL (1.0-4.8); LYMPHOCYTES % 17.7 % (24.0-44.0); MEAN CELL HGB 30.2 pg (26-34); MEAN CELL HGB CONCENTRATION 33.6 g/dL (33-37); MEAN CORP VOLUME 90.1 fL (78-100); MEAN PLATELET VOLUME 9.9 fL (7.8-11.0); MONOCYTES # 0.6 10^3/uL (0.3-0.8); MONOCYTES % 8.8 % (5.0-12.0); NEUTROPHIL # 4.7 10^3/uL (1.8-7.7); NEUTROPHILS % 72.7 % (41.0-85.0); WHITE BLOOD CELL 6.5 10^3/uL (4.5-11.0)
[2019-01-20 05:19] LABS: CARBON DIOXIDE 25.5 mmol/L (20.0-32)
[2019-01-20] MEDS: SYNTHROID PO SCH (05:41)
[2019-01-20] MEDS: ZOSYN 2.25GM 2.25 GM in NS 100ML 100 ML IV SCH (05:42)
[2019-01-20] MEDS: LANTUS SQ SCH ×2 (06:30→21:59)
--- NOTE | 2019-01-20 07:13 | NUR ---
REPORT RECEIVED REPORT, ASSUMED CARE FOR PATIENT AT THIS TIME.
[2019-01-20] MEDS: HUMALOG SQ SCH ×4 (07:25→22:00)
[2019-01-20] MEDS: NS 1000ML/KCL 20MEQ 1,000 ML IV SCH ×2 (08:40→19:20)
[2019-01-20] MEDS: CeleXA PO SCH (09:13)
[2019-01-20] MEDS: PROTONIX PO SCH (09:13)
[2019-01-20] MEDS: LOPRESSOR PO SCH ×2 (09:13→20:23)
[2019-01-20] MEDS: ASPIRIN EC PO SCH (09:13)
[2019-01-20] MEDS: DITROPAN PO SCH (09:13)
[2019-01-20] MEDS: RANEXA PO SCH ×2 (09:13→20:23)
[2019-01-20 09:14] VITALS: BP 135/53
--- NOTE | 2019-01-20 10:38 | NUR ---
PATIENT AMBULATING IN HALLWAY AT THIS TIME WITH PHYSICAL THERAPY STAFF
--- NOTE | 2019-01-20 10:57 | PRM.PN ---
Subjective Subjective Date: Jan 20, 2019 Time: 10:45 Subjective Patient is much improved. Patient has returned to baseline mentation. Labs reviewed. Patient denies complaints. Patient History: Asthma 32 MOTHER, , Age:73 Cerebrovascular disorder 33 FATHER, , Age:58 G8 SISTER, Age:85 Chronic obstructive pulmonary disease G8 SISTER, Age:85 Congestive heart failure G8 BROTHER, Diabetes mellitus G8 BROTHER, G8 SISTER, Age:85 G8 SISTER, 19 CHILD Hypertension 33 FATHER, , Age:58 G8 BROTHER, G8 BROTHER, G8 SISTER, 19 CHILD, , Age:42 No known health problems 19 CHILD No Family History of: Alzheimer's disease Diabetes insipidus Parkinson's disease VTE VTE Risk Total Score: 4 VTE Risk Score VTE Risk: Score 0-1 = Low Risk (Aggressive mobilization; early ambulation; no VTE prophylaxis required) Score 2: Moderate Risk (Intermittent/Pneumatic Compression Device OR Lovenox/Heparin/Coumadin) Score 3-4: High Risk (Intermittent/Pneumatic Compression Device AND Lovenox/Heparin/Coumadin) Score > or =5: Highest Risk (Intermittent/Pneumatic Compression Device AND Lovenox/Heparin/Coumadin) Review of Systems Allergies: Coded Allergies: Sulfa (Sulfonamide Antibiotics) (Verified Allergy, Severe, Swelling, 12/09/15) "THE ROOF OF MY MOUTH SWELLS UP ON ME AND I CAN'T EVEN OPEN MY MOUTH TO TALK" Scheduled Amlodipine Besylate (Amlodipine Besylate), 5 MG PO DAILY, (Reported) Aspirin (Aspir-Low), 1 TAB PO DAILY, (Reported) Aspirin/Dipyridamole (Aggrenox 25 Mg-200 Mg Capsule), 1 CAP PO DAILY, (Reported) Bimatoprost (Lumigan), 1 DROP OP HS, (Reported) Citalopram Hydrobromide (Citalopram Hbr), 1 TAB PO DAILY, (Reported) Fluticasone Propionate (Flovent Hfa), 2 PUFF IH BID, (Reported) Furosemide (Furosemide), 1 TAB PO DAILY, (Reported) Insulin Detemir (Levemir), 12 UNIT SQ ACB, (Reported) Insulin Detemir (Levemir), 8 UNIT SQ HS, (Reported) Levothyroxine Sodium (Levothyroxine Sodium), 50 MCG PO DAILY24, (Reported) Lisinopril (Lisinopril), 1 TAB PO DAILY, (Reported) Metformin Hcl (Metformin Hcl), 1 TAB PO BID, (Reported) Metoprolol Tartrate 50MG (Lopresser 50MG), 1 TAB PO BID, (Reported) Oxybutynin Chloride (Oxybutynin Chloride), 1 TAB PO DAILY, (Reported) Pioglitazone Hcl (Actos), 1 TAB PO DAILY, (Reported) Pregabalin (Lyrica), 1 CAP PO BID, (Reported) Ranolazine (Ranexa), 1 TAB PO BID, (Reported) Tiotropium [place] (Spiriva), 1 CAP IH BID, (Reported) Scheduled PRN Omeprazole (Omeprazole), 1 CAP PO DAILY PRN for INDIGESTION, (Reported) Objective Vitals and I/O Vital Sign - Last 24 Hours 01/19/19 01/19/19 01/19/19 01/19/19 11:00 11:15 11:30 11:45 Pulse 70 70 70 70 Resp 18 18 18 18 B/P (MAP) 135/50 (78) 126/51 (76) 127/48 (74) 116/50 (72) Pulse Ox 98 96 96 97 01/19/19 01/19/19 01/19/19 01/19/19 12:00 16:16 19:10 19:15 Temp 98.3 98.3 Pulse 70 62 71 Resp 18 18 18 B/P (MAP) 121/53 (75) 145/81 (102) Pulse Ox 93 93 92 O2 Delivery Room Air Nasal Cannula Room Air O2 Flow Rate 2.00 FiO2 28 01/19/19 01/20/19 01/20/19 01/20/19 19:15 00:20 04:06 05:17 Temp 98.6 100.0 99.0 98.6 100.0 99.0 Pulse 70 78 75 Resp 18 18 18 B/P (MAP) 162/69 (100) 141/64 (89) 157/86 (109) Pulse Ox 94 92 90 O2 Delivery Room Air Nasal Canula Nasal Canula Room Air O2 Flow Rate 4.00 2.00 01/20/19 01/20/19 01/20/19 09:14 09:26 09:27 Temp 98.0 98.0 Pulse 79 76 76 Resp 20 18 18 B/P (MAP) 135/53 (80) Pulse Ox 93 93 93 O2 Delivery Nasal [place] Nasal Cannula O2 Flow Rate 2.00 2.00 FiO2 28 Intake and Output 01/19/19 01/19/19 01/20/19 15:00 23:00 07:00 Intake Total 240 ml 240 ml 100 ml Output Total 350 ml 500 ml Balance 240 ml -110 ml -400 ml General: Alert, Oriented X3, Cooperative, No acute distress HEENT: PERRLA, EOMI, Mucous membr. moist/pink Neck: Supple, No JVD Lungs: Clear to auscultation, Normal air movement Heart: Regular rate, Normal S1, Normal S2, No murmurs Abdomen: Normal bowel sounds, Soft, No tenderness Extremities: No edema, Normal pulses, No tenderness/swelling Neuro: Normal speech, Strength at 5/5 X4 ext, Normal tone, Sensation intact, Cranial nerves 3-12 NL Psych/Mental Status: Mental status NL, Mood NL All Results(Lab/Rad) Laboratory Tests Test 01/19/19 12:13 01/19/19 16:06 01/19/19 20:39 01/20/19 04:38 Bedside Glucose 158 150 247 White Blood Count 6.5 10^3/uL Red Blood Count 3.34 10^6/uL Hemoglobin 10.1 g/dL Hematocrit 30.1 % Mean Corpuscular Volume 90.1 fL Mean Corpuscular Hemoglobin 30.2 pg Mean Corpuscular Hemoglobin Concent 33.6 g/dL Red Cell Distribution Width 14.0 % Platelet Count 144 10^3/uL Mean Platelet Volume 9.9 fL Neutrophils (%) (Auto) 72.7 % Lymphocytes (%) (Auto) 17.7 % Monocytes (%) (Auto) 8.8 % Neutrophils # (Auto) 4.7 10^3/uL Lymphocytes # (Auto) 1.2 10^3/uL Monocytes # (Auto) 0.6 10^3/uL Absolute Immature Granulocyte (auto 0.02 10^3 u/L Immature Granulocytes % 0.30 % Eosinophils % 0.2 % Basophils % 0.3 % Basophils # 0.0 10^3/uL Eosinophil Count 0.0 10^3/uL Sodium Level 141 mmol/L Potassium Level 4.3 mmol/L Chloride Level 108.0 mmol/L Carbon Dioxide Level 25.5 mmol/L Anion Gap 11.8 Blood Urea Nitrogen 20 mg/dL Creatinine 1.58 mg/dL Estimated GFR () 50.8 BUN/Creatinine Ratio 12.0 Glucose Level 157 mg/dL Calcium Level 9.0 mg/dL Total Bilirubin 0.5 mg/dL Aspartate Amino Transf (AST/SGOT) 36 U/L Alanine Aminotransferase (ALT/SGPT) 46 U/L Alkaline Phosphatase 102 U/L Total Protein 6.3 g/dL Albumin 2.6 g/dL Globulin 3.7 Test 01/20/19 05:45 Bedside Glucose 129 Current Medications Medications (Trade) Dose Ordered Sig/Missy Route PRN Reason Start Time Stop Time Status Last Admin Dose Admin Sodium Chloride 1,000 ml @ 0 mls/hr Q0M STAT IV 01/18/19 20:24 01/18/19 20:34 DC 01/18/19 20:52 Sodium Chloride 1,000 ml @ ud STK-MED ONCE .ROUTE 01/18/19 20:46 01/18/19 20:48 DC Sodium Chloride 1,000 ml @ 0 mls/hr Q0M STAT IV 01/18/19 22:21 01/18/19 22:23 DC 01/18/19 23:30 Piperacillin Sod/ Tazobactam Sod 4.5 gm/Sodium Chloride 100 ml @ 100 mls/hr Q6H IV 01/18/19 23:30 01/19/19 10:23 DC 01/19/19 04:57 Sodium Chloride 100 ml @ ud STK-MED ONCE IV 01/18/19 23:20 01/18/19 23:22 DC Sodium Chloride 1,000 ml @ ud STK-MED ONCE .ROUTE 01/18/19 23:20 01/18/19 23:22 DC Piperacillin Sod/ Tazobactam Sod (Zosyn 4.5 Gram Vial) 4.5 gm STK-MED ONCE IV 01/18/19 23:20 01/18/19 23:22 DC Sodium Chloride 1,000 ml @ 100 mls/hr STAT STAT IV 01/18/19 23:43 01/19/19 09:42 DC 01/18/19 23:43 Sodium Chloride 100 ml @ ud STK-MED ONCE IV 01/19/19 04:52 01/19/19 04:54 DC Piperacillin Sod/ Tazobactam Sod (Zosyn 4.5 Gram Vial) 4.5 gm STK-MED ONCE IV 01/19/19 04:52 01/19/19 04:54 DC Aspirin (Aspirin Ec) 81 mg DAILY PO 01/19/19 09:00 02/18/19 08:59 01/20/19 09:13 Citalopram Hydrobromide (CeleXA) 20 mg DAILY PO 01/19/19 09:00 02/18/19 08:59 01/20/19 09:13 Levothyroxine Sodium (Synthroid) 50 mcg DAILY24 PO 01/19/19 06:00 02/18/19 05:59 01/20/19 05:41 Metoprolol Tartrate (Lopressor) 50 mg BID PO 01/19/19 09:00 02/18/19 08:59 01/20/19 09:13 Oxybutynin Chloride (Ditropan) 5 mg DAILY PO 01/19/19 09:00 02/18/19 08:59 01/20/19 09:13 Ranolazine (Ranexa) 500 mg BID PO 01/19/19 09:00 02/18/19 08:59 01/20/19 09:13 Bimatoprost (Lumigan) 1 drop HS OP 01/19/19 21:00 02/18/19 20:59 Insulin Glargine (Lantus) 12 unit ACB SQ 01/19/19 06:30 02/18/19 06:29 01/19/19 09:12 Insulin Glargine (Lantus) 8 unit HS SQ 01/19/19 21:00 02/18/19 20:59 01/19/19 21:01 Potassium Chloride/Sodium Chloride 1,000 ml @ 75 mls/hr [id number] IV 01/19/19 06:00 02/18/19 05:59 01/19/19 21:33 Ondansetron HCl (Zofran) 4 mg Q4H PRN IV NAUSEA / VOMITING 01/19/19 06:00 02/18/19 05:59 Pantoprazole Sodium (Protonix) 40 mg DAILY PO 01/19/19 09:00 02/18/19 08:59 01/20/19 09:13 Insulin Human Lispro (Humalog) Humalog. Give when food is... ACHS SQ 01/19/19 07:30 02/18/19 07:29 01/19/19 20:59 Dextrose (Dextrose 50%-Water Syringe) 25 ml STAT PRN IV HYPOGLYCEMIA 01/19/19 06:00 02/18/19 05:59 Albuterol/ Ipratropium (Duoneb 0.5 Mg-3 Mg/3 ml Soln) 3 ml RTQ4 PRN IH SHORTNESS OF BREATH 01/19/19 06:00 02/18/19 05:59 Morphine Sulfate (Morphine Sulfate) 4 mg STK-MED ONCE .ROUTE 01/19/19 06:20 01/19/19 06:22 DC Morphine Sulfate (Morphine Sulfate) 1 mg OT PRN IV PAIN 4 - 6 01/19/19 06:30 02/18/19 06:29 01/19/19 06:30 Piperacillin Sod/ Tazobactam Sod 2.25 gm/Sodium Chloride 100 ml @ 100 mls/hr Q6H IV 01/19/19 11:00 01/20/19 10:45 DC 01/20/19 05:42 Ceftriaxone Sodium 1000 mg/ Sodium Chloride 100 ml @ 100 mls/hr Q24HRS IV 01/20/19 11:00 02/19/19 10:59 Course Sepsis Screening Results: Posi: NEGATIVE Sepsis Qualifier/Stage: NO DEFINITE RISK Duration or Total Time Spent w: 45 MIN Vitals & review Data Vital Sign - Last 24 Hours 01/19/19 01/19/19 01/19/19 01/19/19 11:00 11:15 11:30 11:45 Pulse 70 70 70 70 Resp 18 18 18 18 B/P (MAP) 135/50 (78) 126/51 (76) 127/48 (74) 116/50 (72) Pulse Ox 98 96 96 97 01/19/19 01/19/19 01/19/19 01/19/19 12:00 16:16 19:10 19:15 Temp 98.3 98.3 Pulse 70 62 71 Resp 18 18 18 B/P (MAP) 121/53 (75) 145/81 (102) Pulse Ox 93 93 92 O2 Delivery Room Air Nasal Cannula Room Air O2 Flow Rate 2.00 FiO2 28 01/19/19 01/20/19 01/20/1919 19:15 00:20 04:06 05:17 Temp 98.6 100.0 99.0 98.6 100.0 99.0 Pulse 70 78 75 Resp 18 18 B/P (MAP) 162/69 (100) 141/64 (89) 157/86 (109) Pulse Ox 94 92 90 O2 Delivery Room Air Nasal Canula Nasal Canula Room Air O2 Flow Rate 4.00 2.00 01/20/19 01/20/19 01/20/19 09:14 09:26 09:27 Temp 98.0 98.0 Pulse 79 76 76 Resp 18 B/P (MAP) 135/53 (80) Pulse Ox 93 93 93 O2 Delivery Nasal [place] Nasal Cannula O2 Flow Rate 2.00 2.00 FiO2 28 Intake and Output 01/19/19 01/19/19 01/20/19 15:00 23:00 07:00 Intake Total 240 ml 240 ml 100 ml Output Total 350 ml 500 ml Balance 240 ml -110 ml -400 ml Laboratory Tests Test 01/18/19 20:45 01/18/19 20:58 01/18/19 22:41 01/19/19 07:42 White Blood Count 4.8 10^3/uL Red Blood Count 3.38 10^6/uL Hemoglobin 10.4 g/dL Hematocrit 30.4 % Mean Corpuscular Volume 89.9 fL Mean Corpuscular Hemoglobin 30.8 pg Mean Corpuscular Hemoglobin Concent 34.2 g/dL Red Cell Distribution Width 14.2 % Platelet Count 173 10^3/uL Mean Platelet Volume 9.5 fL Neutrophils (%) (Auto) 86.0 % Lymphocytes (%) (Auto) 9.6 % Monocytes (%) (Auto) 4.0 % Neutrophils # (Auto) 4.1 10^3/uL Lymphocytes # (Auto) 0.5 10^3/uL Monocytes # (Auto) 0.2 10^3/uL Absolute Immature Granulocyte (auto 0.02 10^3 u/L Immature Granulocytes % 0.40 % Eosinophils % 0.0 % Basophils % 0.0 % Basophils # 0.0 10^3/uL Eosinophil Count 0.0 10^3/uL Prothrombin Time 10.6 SEC Prothrombin Time INR (Non-Therap) 1.1 Activated Partial Thromboplast Time 24.3 SEC Sodium Level 140 mmol/L Potassium Level 3.9 mmol/L Chloride Level 104.0 mmol/L Carbon Dioxide Level 28.3 mmol/L Anion Gap 11.6 Blood Urea Nitrogen 26 mg/dL Creatinine 1.87 mg/dL Estimated GFR () 41.8 BUN/Creatinine Ratio 13.0 Glucose Level 197 mg/dL Calcium Level 9.3 mg/dL Total Bilirubin 0.4 mg/dL Aspartate Amino Transf (AST/SGOT) 37 U/L Alanine Aminotransferase (ALT/SGPT) 33 U/L Alkaline Phosphatase 109 U/L Total Creatine Kinase 84 U/L Creatine Kinase MB < 0.5 ng/mL Troponin I < 0.02 ng/mL Total Protein 6.8 g/dL Albumin 3.0 g/dL Globulin 3.8 Blood Gas Sample Site VBG [place] Test N/A Lactic Acid (Blood Gas) 1.7 mmol/1 Urine Collection Type VOID Urine Color YELLOW Urine Appearance CLOUDY Urine Bilirubin NEGATIVE MG/DL Urine Ketones NEGATIVE Urine Specific [place] 1.015 Urine pH 5 Urine Protein 30 mg/dL Urine Urobilinogen NORMAL Urine Nitrate NEGATIVE Urine Leukocyte Esterase 500/uL 2+ Urine Blood 25 1+ Urine RBC 0-2 RBC/HPF Urine WBC TNTC WBC/HPF Urine Squamous Epithelial Cells NONE SEEN #/HPF Urine Amorphous Sediment SMALL Urine Bacteria FEW Urine Glucose NORMAL Bedside Glucose 96 Test 01/19/19 12:13 01/19/19 16:06 01/19/19 20:39 01/20/19 04:38 Bedside Glucose 158 150 247 White Blood Count 6.5 10^3/uL Red Blood Count 3.34 10^6/uL Hemoglobin 10.1 g/dL Hematocrit 30.1 % Mean Corpuscular Volume 90.1 fL Mean Corpuscular Hemoglobin 30.2 pg Mean Corpuscular Hemoglobin Concent 33.6 g/dL Red Cell Distribution Width 14.0 % Platelet Count 144 10^3/uL Mean Platelet Volume 9.9 fL Neutrophils (%) (Auto) 72.7 % Lymphocytes (%) (Auto) 17.7 % Monocytes (%) (Auto) 8.8 % Neutrophils # (Auto) 4.7 10^3/uL Lymphocytes # (Auto) 1.2 10^3/uL Monocytes # (Auto) 0.6 10^3/uL Absolute Immature Granulocyte (auto 0.02 10^3 u/L Immature Granulocytes % 0.30 % Eosinophils % 0.2 % Basophils % 0.3 % Basophils # 0.0 10^3/uL Eosinophil Count 0.0 10^3/uL Sodium Level 141 mmol/L Potassium Level 4.3 mmol/L Chloride Level 108.0 mmol/L Carbon Dioxide Level 25.5 mmol/L Anion Gap 11.8 Blood Urea Nitrogen 20 mg/dL Creatinine 1.58 mg/dL Estimated GFR () 50.8 BUN/Creatinine Ratio 12.0 Glucose Level 157 mg/dL Calcium Level 9.0 mg/dL Total Bilirubin 0.5 mg/dL Aspartate Amino Transf (AST/SGOT) 36 U/L Alanine Aminotransferase (ALT/SGPT) 46 U/L Alkaline Phosphatase 102 U/L Total Protein 6.3 g/dL Albumin 2.6 g/dL Globulin 3.7 Test 01/20/19 05:45 Bedside Glucose 129 Current Medications Medications (Trade) Dose Ordered Sig/Misys PRN Reason Start Time Stop Time Status Last Admin Albuterol/ Ipratropium (Duoneb 0.5 Mg-3 Mg/3 ml Soln) 3 ml RTQ4 PRN SHORTNESS OF BREATH 01/19/19 06:00 02/18/19 05:59 Aspirin (Aspirin Ec) 81 mg DAILY 01/19/19 09:00 02/18/19 08:59 01/20/19 09:13 Bimatoprost (Lumigan) 1 drop HS 01/19/19 21:00 02/18/19 20:59 Ceftriaxone Sodium 1000 mg/ Sodium Chloride 100 ml @ 100 mls/hr Q24HRS 01/20/19 11:00 02/19/19 10:59 Citalopram Hydrobromide (CeleXA) 20 mg DAILY 01/19/19 09:00 02/18/19 08:59 01/20/19 09:13 Dextrose (Dextrose 50%-Water Syringe) 25 ml STAT PRN HYPOGLYCEMIA 01/19/19 06:00 02/18/19 05:59 Insulin Glargine (Lantus) 8 unit HS 01/19/19 21:00 02/18/19 20:59 01/19/19 21:01 Insulin Glargine (Lantus) 12 unit ACB 01/19/19 06:30 02/18/19 06:29 01/19/19 09:12 Insulin Human Lispro (Humalog) Humalog. Give when food is... ACHS 01/19/19 07:30 02/18/19 07:29 01/19/19 20:59 Levothyroxine Sodium (Synthroid) 50 mcg DAILY24 01/19/19 06:00 02/18/19 05:59 01/20/19 05:41 Metoprolol Tartrate (Lopressor) 50 mg BID 01/19/19 09:00 02/18/19 08:59 01/20/19 09:13 Morphine Sulfate (Morphine Sulfate) 1 mg OT PRN PAIN 4 - 6 01/19/19 06:30 02/18/19 06:29 01/19/19 06:30 Ondansetron HCl (Zofran) 4 mg Q4H PRN NAUSEA / VOMITING 01/19/19 06:00 02/18/19 05:59 Oxybutynin Chloride (Ditropan) 5 mg DAILY 01/19/19 09:00 02/18/19 08:59 01/20/19 09:13 Pantoprazole Sodium (Protonix) 40 mg DAILY 01/19/19 09:00 02/18/19 08:59 01/20/19 09:13 Potassium Chloride/Sodium Chloride 1,000 ml @ 75 mls/hr [id number] 01/19/19 06:00 02/18/19 05:59 01/19/19 21:33 Ranolazine (Ranexa) 500 mg BID 01/19/19 09:00 02/18/19 08:59 01/20/19 09:13 Sepsis Infection Criteria Pres: Documented Infection LEVEL 1 SEPSIS INFECTION CRITE: ABX Therapy O2 Sat by Pulse Oximetry: 93 Oxygen Flow Rate: 2.00 Assessment/Plan Assessment/Plan Assessment/Plan 1. Infectious Encephalopathy: resolved. Cont IVF, IV abx. 2. Fever: blood cx negative @ 24 hours. Urine cx pending. Changed IV abx from Zosyn to Rocephin. 3. UTI: cont IVF, IV abx. Pending urine culture. 4. Acute on chronic kidney disease: Acute Tubular Necrosis. improving, cont IVF. Monitor urine output. 5. Mechanical fall: cont PT, cont fall precautions. 6. Anemia of chronic disease: CBC daily 7. COPD: cont O2 support, nebs PRN 8. HTN: holding home meds currently 9. DM: cont basal insulin, SSI to cover. D/C Metformin. 10. Hypothyroidism: cont Synthroid 11. CAD: cont ASA, Ranexa 12. Heart Failure: will cont BB. Holding LULI 2/2 SAROJ 13. PPx: SCDs, PPI 14. Left sided abdominal/rib pain: CT reviewed, XR rib series d/c. Patient pain is much improved. GLENNY MARC MD Jan 20, 2019 10:57
[2019-01-20] MEDS: ROCEPHIN 1,000 MG in NS 100ML 100 ML IV SCH (11:10)
[2019-01-20 11:12] VITALS: BP 158/66
[2019-01-20 16:09] VITALS: BP 159/57
[2019-01-20 18:48] VITALS: BP 138/66
--- NOTE | 2019-01-20 18:50 | NUR ---
REPORT RECEIVED REPORT, ASSUMED CARE FOR PATIENT AT THIS TIME. PATIENT IN CHAIR DENIES ANY NEEDS AT THIS TIME. CALL LIGHT WITHIN REACH
[2019-01-20] MEDS: LUMIGAN OP SCH (21:00)
[2019-01-21 00:25] VITALS: BP 142/66
[2019-01-21 03:58] VITALS: BP 155/75
[2019-01-21 05:42] LABS: BASOPHIL % 0.1 % (0.0-0.2); HEMOGLOBIN 10.1 g/dL (13.9-16.3); LYMPHOCYTES # 1.1 10^3/uL (1.0-4.8); MEAN CELL HGB 30.6 pg (26-34); MEAN CELL HGB CONCENTRATION 34.1 g/dL (33-37); MEAN CORP VOLUME 89.7 fL (78-100); MEAN PLATELET VOLUME 10.3 fL (7.8-11.0); MONOCYTES # 0.7 10^3/uL (0.3-0.8); MONOCYTES % 9.7 % (5.0-12.0); NEUTROPHIL # 4.9 10^3/uL (1.8-7.7); NEUTROPHILS % 73.9 % (41.0-85.0); WHITE BLOOD CELL 6.7 10^3/uL (4.5-11.0)
[2019-01-21] MEDS: SYNTHROID PO SCH (06:07)
[2019-01-21 06:11] LABS: CALCIUM 8.9 mg/dL (8.4-10.5); CARBON DIOXIDE 26.1 mmol/L (20.0-32)
[2019-01-21 07:25] VITALS: BP 172/73
[2019-01-21] MEDS: LANTUS SQ SCH (07:57)
[2019-01-21] MEDS: HUMALOG SQ SCH ×2 (07:57→12:23)
[2019-01-21] MEDS: LOPRESSOR PO SCH (08:06)
[2019-01-21] MEDS: ASPIRIN EC PO SCH (08:06)
[2019-01-21] MEDS: CeleXA PO SCH (08:06)
[2019-01-21] MEDS: PROTONIX PO SCH (08:07)
[2019-01-21] MEDS: RANEXA PO SCH (08:07)
[2019-01-21] MEDS: DITROPAN PO SCH (08:10)
[2019-01-21] MEDS ORDERED: AMOX1TAB63 PO (09:04)
--- NOTE | 2019-01-21 09:10 | PRM.DC ---
Discharge Summary Date of Discharge: Jan 21, 2019 Time of Request to Discharge: 09:00 Reason for Visit: Mechanical fall Hospital Course Patient admitted following mechanical fall. He had Metabolic/Infectious encephalopathy and mild AMS. Patient found to have SAROJ and UTI. Patient was treated with IVF and IV abx with improvement in symptoms. Patient returned to baseline mentation and was alert and appropriately responsive. He underwent PT eval/treat and was much improved. Patient had lacerations on extremities that he received wound care for. Patient urine cx returned with Alpha strep. Patient d/c on course of PO abx. He is medically clear to d/c back to SNF for further acute rehabilitation. Patient History: Asthma 32 MOTHER, , Age:73 Cerebrovascular disorder 33 FATHER, , Age:58 G8 SISTER, Age:85 Chronic obstructive pulmonary disease G8 SISTER, Age:85 Congestive heart failure G8 BROTHER, Diabetes mellitus G8 BROTHER, G8 SISTER, Age:85 G8 SISTER, 19 CHILD Hypertension 33 FATHER, , Age:58 G8 BROTHER, G8 BROTHER, G8 SISTER, 19 CHILD, , Age:42 No known health problems 19 CHILD No Family History of: Alzheimer's disease Diabetes insipidus Parkinson's disease General: Alert, Oriented X3, Cooperative, No acute distress HEENT: PERRLA, EOMI, Mucous membr. moist/pink Neck: Supple, No JVD Lungs: Clear to auscultation, Normal air movement Heart: Regular rate, Normal S1, Normal S2, No murmurs Abdomen: Normal bowel sounds, Soft, No tenderness Extremities: No edema, Normal pulses, No tenderness/swelling Skin: No rashes, No breakdown, No significant lesion Neuro: Normal speech, Strength at 5/5 X4 ext, Normal tone, Sensation intact, Cranial nerves 3-12 NL Psych/Mental Status: Mental status NL, Mood NL Scheduled Amlodipine Besylate (Amlodipine Besylate), 5 MG PO DAILY, (Reported) Amoxicillin/Potassium Clav (Augmentin 875-125 Tablet), 1 EACH PO BID Aspirin (Aspir-Low), 1 TAB PO DAILY, (Reported) Aspirin/Dipyridamole (Aggrenox 25 Mg-200 Mg Capsule), 1 CAP PO DAILY, (Reported) Bimatoprost (Lumigan), 1 DROP OP HS, (Reported) Citalopram Hydrobromide (Citalopram Hbr), 1 TAB PO DAILY, (Reported) Fluticasone Propionate (Flovent Hfa), 2 PUFF IH BID, (Reported) Furosemide (Furosemide), 1 TAB PO DAILY, (Reported) Insulin Detemir (Levemir), 12 UNIT SQ ACB, (Reported) Insulin Detemir (Levemir), 8 UNIT SQ HS, (Reported) Levothyroxine Sodium (Levothyroxine Sodium), 50 MCG PO DAILY24, (Reported) Lisinopril (Lisinopril), 1 TAB PO DAILY, (Reported) Metformin Hcl (Metformin Hcl), 1 TAB PO BID, (Reported) Metoprolol Tartrate 50MG (Lopresser 50MG), 1 TAB PO BID, (Reported) Oxybutynin Chloride (Oxybutynin Chloride), 1 TAB PO DAILY, (Reported) Pioglitazone Hcl (Actos), 1 TAB PO DAILY, (Reported) Pregabalin (Lyrica), 1 CAP PO BID, (Reported) Ranolazine (Ranexa), 1 TAB PO BID, (Reported) Tiotropium [place] (Spiriva), 1 CAP IH BID, (Reported) Scheduled PRN Omeprazole (Omeprazole), 1 CAP PO DAILY PRN for INDIGESTION, (Reported) Sepsis Evaluation @ Discharge Vital Sign - Last 24 Hours 01/19/19 01/19/19 01/19/19 01/19/19 11:00 11:15 11:30 11:45 Pulse 70 70 70 70 Resp 18 18 18 18 B/P (MAP) 135/50 (78) 126/51 (76) 127/48 (74) 116/50 (72) Pulse Ox 98 96 96 97 01/19/19 01/19/19 01/19/19 01/19/19 12:00 16:16 19:10 19:15 Temp 98.3 98.3 Pulse 70 62 71 Resp 18 18 18 B/P (MAP) 121/53 (75) 145/81 (102) Pulse Ox 93 93 92 O2 Delivery Room Air Nasal Cannula Room Air O2 Flow Rate 2.00 FiO2 28 01/19/19 01/20/19 01/20/19 01/20/19 19:15 00:20 04:06 05:17 Temp 98.6 100.0 99.0 98.6 100.0 99.0 Pulse 70 78 75 Resp 18 18 18 B/P (MAP) 162/69 (100) 141/64 (89) 157/86 (109) Pulse Ox 94 92 90 O2 Delivery Room Air Nasal Canula Nasal Canula Room Air O2 Flow Rate 4.00 2.00 01/20/19 01/20/19 01/20/19 09:14 09:26 09:27 Temp 98.0 98.0 Pulse 79 76 76 Resp 20 18 18 B/P (MAP) 135/53 (80) Pulse Ox 93 93 93 O2 Delivery Nasal Canula Nasal Cannula O2 Flow Rate 2.00 2.00 FiO2 28 Intake and Output 01/19/19 01/19/19 01/20/19 15:00 23:00 07:00 Intake Total 240 ml 240 ml 100 ml Output Total 350 ml 500 ml Balance 240 ml -110 ml -400 ml Laboratory Tests Test 01/18/19 20:45 01/18/19 20:58 01/18/19 22:41 01/19/19 07:42 White Blood Count 4.8 10^3/uL Red Blood Count 3.38 10^6/uL Hemoglobin 10.4 g/dL Hematocrit 30.4 % Mean Corpuscular Volume 89.9 fL Mean Corpuscular Hemoglobin 30.8 pg Mean Corpuscular Hemoglobin Concent 34.2 g/dL Red Cell Distribution Width 14.2 % Platelet Count 173 10^3/uL Mean Platelet Volume 9.5 fL Neutrophils (%) (Auto) 86.0 % Lymphocytes (%) (Auto) 9.6 % Monocytes (%) (Auto) 4.0 % Neutrophils # (Auto) 4.1 10^3/uL Lymphocytes # (Auto) 0.5 10^3/uL Monocytes # (Auto) 0.2 10^3/uL Absolute Immature Granulocyte (auto 0.02 10^3 u/L Immature Granulocytes % 0.40 % Eosinophils % 0.0 % Basophils % 0.0 % Basophils # 0.0 10^3/uL Eosinophil Count 0.0 10^3/uL Prothrombin Time 10.6 SEC Prothrombin Time INR (Non-Therap) 1.1 Activated Partial Thromboplast Time 24.3 SEC Sodium Level 140 mmol/L Potassium Level 3.9 mmol/L Chloride Level 104.0 mmol/L Carbon Dioxide Level 28.3 mmol/L Anion Gap 11.6 Blood Urea Nitrogen 26 mg/dL Creatinine 1.87 mg/dL Estimated GFR () 41.8 BUN/Creatinine Ratio 13.0 Glucose Level 197 mg/dL Calcium Level 9.3 mg/dL Total Bilirubin 0.4 mg/dL Aspartate Amino Transf (AST/SGOT) 37 U/L Alanine Aminotransferase (ALT/SGPT) 33 U/L Alkaline Phosphatase 109 U/L Total Creatine Kinase 84 U/L Creatine Kinase MB < 0.5 ng/mL Troponin I < 0.02 ng/mL Total Protein 6.8 g/dL Albumin 3.0 g/dL Globulin 3.8 Blood Gas Sample Site VBG Ramses Test N/A Lactic Acid (Blood Gas) 1.7 mmol/1 Urine Collection Type VOID Urine Color YELLOW Urine Appearance CLOUDY Urine Bilirubin NEGATIVE MG/DL Urine Ketones NEGATIVE Urine Specific [place] 1.015 Urine pH 5 Urine Protein 30 mg/dL Urine Urobilinogen NORMAL Urine Nitrate NEGATIVE Urine Leukocyte Esterase 500/uL 2+ Urine Blood 25 1+ Urine RBC 0-2 RBC/HPF Urine WBC TNTC WBC/HPF Urine Squamous Epithelial Cells NONE SEEN #/HPF Urine Amorphous Sediment SMALL Urine Bacteria FEW Urine Glucose NORMAL Bedside Glucose 96 Test 01/19/19 12:13 01/19/19 16:06 01/19/19 20:39 01/20/19 04:38 Bedside Glucose 158 150 247 White Blood Count 6.5 10^3/uL Red Blood Count 3.34 10^6/uL Hemoglobin 10.1 g/dL Hematocrit 30.1 % Mean Corpuscular Volume 90.1 fL Mean Corpuscular Hemoglobin 30.2 pg Mean Corpuscular Hemoglobin Concent 33.6 g/dL Red Cell Distribution Width 14.0 % Platelet Count 144 10^3/uL Mean Platelet Volume 9.9 fL Neutrophils (%) (Auto) 72.7 % Lymphocytes (%) (Auto) 17.7 % Monocytes (%) (Auto) 8.8 % Neutrophils # (Auto) 4.7 10^3/uL Lymphocytes # (Auto) 1.2 10^3/uL Monocytes # (Auto) 0.6 10^3/uL Absolute Immature Granulocyte (auto 0.02 10^3 u/L Immature Granulocytes % 0.30 % Eosinophils % 0.2 % Basophils % 0.3 % Basophils # 0.0 10^3/uL Eosinophil Count 0.0 10^3/uL Sodium Level 141 mmol/L Potassium Level 4.3 mmol/L Chloride Level 108.0 mmol/L Carbon Dioxide Level 25.5 mmol/L Anion Gap 11.8 Blood Urea Nitrogen 20 mg/dL Creatinine 1.58 mg/dL Estimated GFR () 50.8 BUN/Creatinine Ratio 12.0 Glucose Level 157 mg/dL Calcium Level 9.0 mg/dL Total Bilirubin 0.5 mg/dL Aspartate Amino Transf (AST/SGOT) 36 U/L Alanine Aminotransferase (ALT/SGPT) 46 U/L Alkaline Phosphatase 102 U/L Total Protein 6.3 g/dL Albumin 2.6 g/dL Globulin 3.7 Test 01/20/19 05:45 Bedside Glucose 129 Current Medications Medications (Trade) Dose Ordered Sig/Missy PRN Reason Start Time Stop Time Status Last Admin Albuterol/ Ipratropium (Duoneb 0.5 Mg-3 Mg/3 ml Soln) 3 ml RTQ4 PRN SHORTNESS OF BREATH 01/19/19 06:00 02/18/19 05:59 Aspirin (Aspirin Ec) 81 mg DAILY 01/19/19 09:00 02/18/19 08:59 01/20/19 09:13 Bimatoprost (Lumigan) 1 drop HS 01/19/19 21:00 02/18/19 20:59 Ceftriaxone Sodium 1000 mg/ Sodium Chloride 100 ml @ 100 mls/hr Q24HRS 01/20/19 11:00 02/19/19 10:59 Citalopram Hydrobromide (CeleXA) 20 mg DAILY 01/19/19 09:00 02/18/19 08:59 01/20/19 09:13 Dextrose (Dextrose 50%-Water Syringe) 25 ml STAT PRN HYPOGLYCEMIA 01/19/19 06:00 02/18/19 05:59 Insulin Glargine (Lantus) 8 unit HS 01/19/19 21:00 02/18/19 20:59 01/19/19 21:01 Insulin Glargine (Lantus) 12 unit ACB 01/19/19 06:30 02/18/19 06:29 01/19/19 09:12 Insulin Human Lispro (Humalog) Humalog. Give when food is... ACHS 01/19/19 07:30 02/18/19 07:29 01/19/19 20:59 Levothyroxine Sodium (Synthroid) 50 mcg DAILY24 01/19/19 06:00 02/18/19 05:59 01/20/19 05:41 Metoprolol Tartrate (Lopressor) 50 mg BID 01/19/19 09:00 02/18/19 08:59 01/20/19 09:13 Morphine Sulfate (Morphine Sulfate) 1 mg OT PRN PAIN 4 - 6 01/19/19 06:30 02/18/19 06:29 01/19/19 06:30 Ondansetron HCl (Zofran) 4 mg Q4H PRN NAUSEA / VOMITING 01/19/19 06:00 02/18/19 05:59 Oxybutynin Chloride (Ditropan) 5 mg DAILY 01/19/19 09:00 02/18/19 08:59 01/20/19 09:13 Pantoprazole Sodium (Protonix) 40 mg DAILY 01/19/19 09:00 02/18/19 08:59 01/20/19 09:13 Potassium Chloride/Sodium Chloride 1,000 ml @ 75 mls/hr [id number] 01/19/19 06:00 02/18/19 05:59 01/19/19 21:33 Ranolazine (Ranexa) 500 mg BID 01/19/19 09:00 02/18/19 08:59 01/20/19 09:13 Course Sepsis Screening Results: Posi: NEGATIVE Sepsis Qualifier/Stage: NO DEFINITE RISK Duration or Total Time Spent w: 45 MIN Vitals & review Data Vital Sign - Last 24 Hours 01/19/19 01/19/19 01/19/19 01/19/19 11:00 11:15 11:30 11:45 Pulse 70 70 70 70 Resp 18 18 18 18 B/P (MAP) 135/50 (78) 126/51 (76) 127/48 (74) 116/50 (72) Pulse Ox 98 96 96 97 01/19/19 01/19/19 01/19/19 01/19/19 12:00 16:16 19:10 19:15 Temp 98.3 98.3 Pulse 70 62 71 Resp 18 18 18 B/P (MAP) 121/53 (75) 145/81 (102) Pulse Ox 93 93 92 O2 Delivery Room Air Nasal Cannula Room Air O2 Flow Rate 2.00 FiO2 28 01/19/19 01/20/19 01/20/19 01/20/19 19:15 00:20 04:06 05:17 Temp 98.6 100.0 99.0 98.6 100.0 99.0 Pulse 70 78 75 Resp 18 18 18 B/P (MAP) 162/69 (100) 141/64 (89) 157/86 (109) Pulse Ox 94 92 90 O2 Delivery Room Air Nasal Canula Nasal Canula Room Air O2 Flow Rate 4.00 2.00 01/20/19 01/20/19 01/20/19 09:14 09:26 09:27 Temp 98.0 98.0 Pulse 79 76 76 Resp 20 18 18 B/P (MAP) 135/53 (80) Pulse Ox 93 93 93 O2 Delivery Nasal Canula Nasal Cannula O2 Flow Rate 2.00 2.00 FiO2 28 Intake and Output 01/19/19 01/19/19 01/20/19 15:00 23:00 07:00 Intake Total 240 ml 240 ml 100 ml Output Total 350 ml 500 ml Balance 240 ml -110 ml -400 ml Laboratory Tests Test 01/18/19 20:45 01/18/19 20:58 01/18/19 22:41 01/19/19 07:42 White Blood Count 4.8 10^3/uL Red Blood Count 3.38 10^6/uL Hemoglobin 10.4 g/dL Hematocrit 30.4 % Mean Corpuscular Volume 89.9 fL Mean Corpuscular Hemoglobin 30.8 pg Mean Corpuscular Hemoglobin Concent 34.2 g/dL Red Cell Distribution Width 14.2 % Platelet Count 173 10^3/uL Mean Platelet Volume 9.5 fL Neutrophils (%) (Auto) 86.0 % Lymphocytes (%) (Auto) 9.6 % Monocytes (%) (Auto) 4.0 % Neutrophils # (Auto) 4.1 10^3/uL Lymphocytes # (Auto) 0.5 10^3/uL Monocytes # (Auto) 0.2 10^3/uL Absolute Immature Granulocyte (auto 0.02 10^3 u/L Immature Granulocytes % 0.40 % Eosinophils % 0.0 % Basophils % 0.0 % Basophils # 0.0 10^3/uL Eosinophil Count 0.0 10^3/uL Prothrombin Time 10.6 SEC Prothrombin Time INR (Non-Therap) 1.1 Activated Partial Thromboplast Time 24.3 SEC Sodium Level 140 mmol/L Potassium Level 3.9 mmol/L Chloride Level 104.0 mmol/L Carbon Dioxide Level 28.3 mmol/L Anion Gap 11.6 Blood Urea Nitrogen 26 mg/dL Creatinine 1.87 mg/dL Estimated GFR () 41.8 BUN/Creatinine Ratio 13.0 Glucose Level 197 mg/dL Calcium Level 9.3 mg/dL Total Bilirubin 0.4 mg/dL Aspartate Amino Transf (AST/SGOT) 37 U/L Alanine Aminotransferase (ALT/SGPT) 33 U/L Alkaline Phosphatase 109 U/L Total Creatine Kinase 84 U/L Creatine Kinase MB < 0.5 ng/mL Troponin I < 0.02 ng/mL Total Protein 6.8 g/dL Albumin 3.0 g/dL Globulin 3.8 Blood Gas Sample Site VBG Ramses Test N/A Lactic Acid (Blood Gas) 1.7 mmol/1 Urine Collection Type VOID Urine Color YELLOW Urine Appearance CLOUDY Urine Bilirubin NEGATIVE MG/DL Urine Ketones NEGATIVE Urine Specific [place] 1.015 Urine pH 5 Urine Protein 30 mg/dL Urine Urobilinogen NORMAL Urine Nitrate NEGATIVE Urine Leukocyte Esterase 500/uL 2+ Urine Blood 25 1+ Urine RBC 0-2 RBC/HPF Urine WBC TNTC WBC/HPF Urine Squamous Epithelial Cells NONE SEEN #/HPF Urine Amorphous Sediment SMALL Urine Bacteria FEW Urine Glucose NORMAL Bedside Glucose 96 Test 01/19/19 12:13 01/19/19 16:06 01/19/19 20:39 01/20/19 04:38 Bedside Glucose 158 150 247 White Blood Count 6.5 10^3/uL Red Blood Count 3.34 10^6/uL Hemoglobin 10.1 g/dL Hematocrit 30.1 % Mean Corpuscular Volume 90.1 fL Mean Corpuscular Hemoglobin 30.2 pg Mean Corpuscular Hemoglobin Concent 33.6 g/dL Red Cell Distribution Width 14.0 % Platelet Count 144 10^3/uL Mean Platelet Volume 9.9 fL Neutrophils (%) (Auto) 72.7 % Lymphocytes (%) (Auto) 17.7 % Monocytes (%) (Auto) 8.8 % Neutrophils # (Auto) 4.7 10^3/uL Lymphocytes # (Auto) 1.2 10^3/uL Monocytes # (Auto) 0.6 10^3/uL Absolute Immature Granulocyte (auto 0.02 10^3 u/L Immature Granulocytes % 0.30 % Eosinophils % 0.2 % Basophils % 0.3 % Basophils # 0.0 10^3/uL Eosinophil Count 0.0 10^3/uL Sodium Level 141 mmol/L Potassium Level 4.3 mmol/L Chloride Level 108.0 mmol/L Carbon Dioxide Level 25.5 mmol/L Anion Gap 11.8 Blood Urea Nitrogen 20 mg/dL Creatinine 1.58 mg/dL Estimated GFR () 50.8 BUN/Creatinine Ratio 12.0 Glucose Level 157 mg/dL Calcium Level 9.0 mg/dL Total Bilirubin 0.5 mg/dL Aspartate Amino Transf (AST/SGOT) 36 U/L Alanine Aminotransferase (ALT/SGPT) 46 U/L Alkaline Phosphatase 102 U/L Total Protein 6.3 g/dL Albumin 2.6 g/dL Globulin 3.7 Test 01/20/19 05:45 Bedside Glucose 129 Current Medications Medications (Trade) Dose Ordered Sig/Missy PRN Reason Start Time Stop Time Status Last Admin Albuterol/ Ipratropium (Duoneb 0.5 Mg-3 Mg/3 ml Soln) 3 ml RTQ4 PRN SHORTNESS OF BREATH 01/19/19 06:00 02/18/19 05:59 Aspirin (Aspirin Ec) 81 mg DAILY 01/19/19 09:00 02/18/19 08:59 01/20/19 09:13 Bimatoprost (Lumigan) 1 drop HS 01/19/19 21:00 02/18/19 20:59 Ceftriaxone Sodium 1000 mg/ Sodium Chloride 100 ml @ 100 mls/hr Q24HRS 01/20/19 11:00 02/19/19 10:59 Citalopram Hydrobromide (CeleXA) 20 mg DAILY 01/19/19 09:00 02/18/19 08:59 01/20/19 09:13 Dextrose (Dextrose 50%-Water Syringe) 25 ml STAT PRN HYPOGLYCEMIA 01/19/19 06:00 02/18/19 05:59 Insulin Glargine (Lantus) 8 unit HS 01/19/19 21:00 02/18/19 20:59 01/19/19 21:01 Insulin Glargine (Lantus) 12 unit ACB 01/19/19 06:30 02/18/19 06:29 01/19/19 09:12 Insulin Human Lispro (Humalog) Humalog. Give when food is... ACHS 01/19/19 07:30 02/18/19 07:29 01/19/19 20:59 Levothyroxine Sodium (Synthroid) 50 mcg DAILY24 01/19/19 06:00 02/18/19 05:59 01/20/19 05:41 Metoprolol Tartrate (Lopressor) 50 mg BID 01/19/19 09:00 02/18/19 08:59 01/20/19 09:13 Morphine Sulfate (Morphine Sulfate) 1 mg OT PRN PAIN 4 - 6 01/19/19 06:30 02/18/19 06:29 01/19/19 06:30 Ondansetron HCl (Zofran) 4 mg Q4H PRN NAUSEA / VOMITING 01/19/19 06:00 02/18/19 05:59 Oxybutynin Chloride (Ditropan) 5 mg DAILY 01/19/19 09:00 02/18/19 08:59 01/20/19 09:13 Pantoprazole Sodium (Protonix) 40 mg DAILY 01/19/19 09:00 02/18/19 08:59 01/20/19 09:13 Potassium Chloride/Sodium Chloride 1,000 ml @ 75 mls/hr [id number] 01/19/19 06:00 02/18/19 05:59 01/19/19 21:33 Ranolazine (Ranexa) 500 mg BID 01/19/19 09:00 02/18/19 08:59 01/20/19 09:13 Sepsis Infection Criteria Pres: Documented Infection LEVEL 1 SEPSIS INFECTION CRITE: ABX Therapy LEVEL 2-SIRS (LIST ALL THAT AP: None/Not assessed O2 Sat by Pulse Oximetry: 93 Oxygen Flow Rate: 2.00 Plan Discharge Date: Jan 21, 2019 Dicharge DX: metabolic Encephalopathy, Acute on Chronic kidney disease, mechanical fall Discharge Disposition: Stable Plan ok to d/c to SNF medications: per med rec list Diet: diabetic Activity: ambulate with assistance Return to care for worsening/concerning symptoms F/U with PCP within 1-2 weeks. GLENNY MARC MD Jan 21, 2019 09:10
--- NOTE | 2019-01-21 10:21 | NUR ---
STATUS TELEPHONE REPORT GIVEN TO THE NURSE BUSTER KRISHNAMURTHY IN [facility] ON Pt.
[2019-01-21] MEDS: ROCEPHIN 1,000 MG in NS 100ML 100 ML IV SCH (11:08)
[2019-01-21 11:36] VITALS: BP 152/64
[2019-01-21] MEDS: NS 1000ML/KCL 20MEQ 1,000 ML IV SCH (11:38)
[2019-01-21 12:46] VITALS: BP 152/64
--- NOTE | 2019-01-21 12:46 | NUR ---
DISCHARGED Pt DISCHARGE TO [facility] FROM THE UNIT, DEE MCCONNELL WAS GIVEN THE DISCHARGE PACKET. IV D/C.
== END 2019-01-21 12:45 | DRG 70 ==
LOC: ER 19:30 → EDBD 19:30 → ICU 23:53 → MS 01-19 12:39 → EDPENDDISDT 01-21 00:30 → EDPENDDISTM 01-21 12:46
PROVIDERS: ADMIT Family Medicine; ATTEND Family Medicine
DX: G93.41 Metabolic encephalopathy (principal); N17.0 Acute kidney failure with tubular necrosis; I13.0 Hypertensive heart and chronic kidney disease with heart failure and stage 1 through stage 4 chronic kidney disease, or unspecified chronic kidney disease; N13.6 Pyonephrosis; N18.9 Chronic kidney disease, unspecified; D63.8 Anemia in other chronic diseases classified elsewhere; E03.9 Hypothyroidism, unspecified; E11.22 Type 2 diabetes mellitus with diabetic chronic kidney disease; I25.10 Atherosclerotic heart disease of native coronary artery without angina pectoris; I50.9 Heart failure, unspecified; S81.819A Laceration without foreign body, unspecified lower leg, initial encounter; M19.90 Unspecified osteoarthritis, unspecified site; W01.0XXA Fall on same level from slipping, tripping and stumbling without subsequent striking against object, initial encounter; S80.812A Abrasion, left lower leg, initial encounter; S20.212A Contusion of left front wall of thorax, initial encounter; S80.12XA Contusion of left lower leg, initial encounter; E66.9 Obesity, unspecified; J44.9 Chronic obstructive pulmonary disease, unspecified; Y93.89 Activity, other specified; Y99.8 Other external cause status; Z79.4 Long term (current) use of insulin; Z79.51 Long term (current) use of inhaled steroids; Z79.82 Long term (current) use of aspirin; Z86.73 Personal history of transient ischemic attack (TIA), and cerebral infarction without residual deficits; Y92.129 Unspecified place in nursing home as the place of occurrence of the external cause; Z88.2 Allergy status to sulfonamides; Z79.84 Long term (current) use of oral hypoglycemic drugs; Z79.899 Other long term (current) drug therapy; Z90.49 Acquired absence of other specified parts of digestive tract; Z68.31 Body mass index [BMI] 31.0-31.9, adult; Z87.891 Personal history of nicotine dependence; Z82.5 Family history of asthma and other chronic lower respiratory diseases; Z82.3 Family history of stroke; Z83.6 Family history of other diseases of the respiratory system; Z83.3 Family history of diabetes mellitus; Z82.49 Family history of ischemic heart disease and other diseases of the circulatory system
CPT/HCPCS: 36415; 70450; 71250; 72125; 74176; 80053; 81000; 82550; 82553; 82948; 83605; 84484; 85025; 85610; 85730; 87040; 87086; 93005; 97161; 99285; G0378; J0696; J1815; J2270; J2543; J7030; J7050; 73562-LT; 97116-GP